=== PATIENT | female | born 1960 | race Caucasian/White ===

== ENCOUNTER 2020-08-27 13:12 | Outpatient (REF) | payer MEDICAID, SELFPAY | END 2020-08-27 13:13 | disposition home or self-care (01) | LOC: HO.LAB 13:12 | PROVIDERS: Visit Provider Internal Medicine | DX: Z20.822 Contact with and (suspected) exposure to COVID-19 (principal) | CPT/HCPCS: 36415; C9803; U0003; U0005 ==

== ENCOUNTER 2020-12-21 14:48 | Outpatient (REF) | payer MEDICAID, SELFPAY ==
--- NOTE | ~2020-12-21 | MM_ITS ---
EXAMINATION: MM SCREENING DIGITAL BREAST TOMOSYNTHESIS, BILATERAL CLINICAL INFORMATION: Screening. Asymptomatic. The lifetime risk of breast cancer based on the Tyrer-Cuzick Model is 7%. COMPARISON: Mammography: 10/26/2018, 09/30/2017, 09/05/2016 TECHNIQUE: Digital breast tomosynthesis is performed in both the craniocaudal and mediolateral oblique views along with computer-aided detection (CAD). Synthesized 2D images are generated from the tomosynthesis. FINDINGS: There are scattered areas of fibroglandular density (ACR BI-RADS breast composition Category b). Fibronodular parenchymal pattern is similar to prior exams. There is no interval mass or architectural abnormality. No developing density or abnormal calcifications. The axilla and skin contours are unremarkable. No significant changes from prior studies. MM/MM tomosynthesis screening BI IMPRESSION: No mammographic evidence of malignancy. ASSESSMENT: BI-RADS 2: Benign RECOMMENDATION: Routine annual mammography screening. This patient's information was entered into a reminder system with a target due date for their next mammogram.
== END 2020-12-21 14:49 | disposition home or self-care (01) ==
LOC: HO.MAMMO 14:48
PROVIDERS: PCP Registered Nurse; Visit Provider Registered Nurse
DX: Z12.31 Encounter for screening mammogram for malignant neoplasm of breast (principal)
CPT/HCPCS: 77063; 77067

== ENCOUNTER 2021-03-03 10:11 | Emergency (ER) | payer MEDICAID, SELFPAY ==
[2021-03-03 10:21] VITALS: BP 142/91; PULSE 85; RESP 17; TEMP 36.6; O2SAT 96; BMI 27.4
[2021-03-03 10:29] VITALS: BP 131/74; PULSE 80; RESP 16; TEMP 36.6; O2SAT 97
--- NOTE | 2021-03-03 11:00 | ED.GENADULT ---
HPI - General Adult General Chief complaint: General Medical Stated complaint: neck and back pain Time Seen by Provider: 03/03/21 10:40 Source: patient Mode of arrival: ambulatory History of Present Illness HPI narrative: 60-year-old female with a past medical history hyperlipidemia, HTN presenting to the ED complaining of right-sided neck pain x3 days s/p moving treadmill. Denies direct injury/trauma or fall. Denies numbness, tingling, weakness, urinary incontinence/retention, headache Reports using Braden-Beltran without relief Onset (ago): day(s) Related Data Previous Rx's Medication Instructions Recorded acetaminophen 500 mg tablet 500 mg PO Q6H PRN #20 tab 03/03/21 (Tylenol Extra Strength) cyclobenzaprine 5 mg tablet 5 mg PO Q8H PRN 5 Days #14 tab 03/03/21 lidocaine 5 % topical patch 1 patch TOPICAL DAILY PRN #30 ea 03/03/21 (Lidoderm) MDD remove after 12 hours naproxen 500 mg tablet 500 mg PO BID PRN 10 Days #20 tab 03/03/21 Allergies Allergy/AdvReac Type Severity Reaction Status Date / Time penicillin V Allergy Unknown Verified 09/26/19 00:00 Penicillins [PENICILLINS] Allergy Unknown RASH Unverified 04/05/20 16:04 Review of Systems Review of Systems: Constitutional: No Fever, No Chills, No Fatigue, No Malaise ENT/Mouth: No Hearing loss, No Ear Pain, No sore throat, No Rhinorrhea, No Swallowing Difficulty Cardiovascular: No Chest Pain, No SOB Respiratory: No Cough, No Dyspnea Gastrointestinal: No Nausea, No Vomiting, No Abdominal pain Genitourinary: No Urinary Incontinence/retention Musculoskeletal: + joint pain, No Myalgias, No Joint Swelling Skin: No Skin Lesions, No rash Neuro: No Weakness, No Numbness, No Paresthesias, No Headache Yes all other systems are reviewed and are negative [facility] Past Medical History Attestation statement: The following information was validated with the patient. Medical History (Updated 03/03/21 @ 11:01 by JOSH Butt) High cholesterol Hypothyroid Social History Social History Advance Directives: No Advance Directives Information Provided: No Patient : No Physical Exam Vital Signs: Vital Signs: Last Vital Signs Temp 97.9 F 03/03/21 10:29 Pulse 80 03/03/21 10:29 Resp 16 03/03/21 10:29 BP 131/74 03/03/21 10:29 Pulse Ox 97 03/03/21 10:29 Body Mass Index 27.4 Const: General: cooperative and healthy appearing Orientation/consciousness: patient oriented x3 Limitations: no limitations HENMT: Head: Yes normal to inspection Ears: hearing grossly normal bilaterally General nose exam: Normal external nose present Face and sinus: Yes normal facial exam Eyes: General: appearance normal, both eyes and all related structures EOM: EOMs intact bilaterally Neck: Other: No midline cervical spinous tenderness/step-off or deformity. + right-sided paraspinal MSK tenderness and + Right-sided trapezius muscle tenderness and visible muscle spasming Neck: Yes normal visual inspection Resp: Effort & Inspection: normal respiratory effort and no respiratory distress Cardio: Rate: regular rate Peripheral pulses: radial pulses present : General: Yes no CVA tenderness Back/Spine/Pelvis: Other: No midline thoracic/lumbar spinous tenderness or step-off Back: no CVA tenderness Skin: Rashes: no rashes Wounds: no wounds Neuro: General: patient oriented x3 Gait exam (Neuro): Normal gait present Extrem: General: Yes normal to inspection Medical Decision Making MDM Narrative Medical decision making narrative: 60-year-old female with a past medical history hyperlipidemia, HTN presenting to the ED complaining of right-sided neck pain x3 days s/p moving treadmill. On exam VS as, NAD, physical exam as above consistent with MSK pain/muscle spasming. no red flag symptoms or midline spinous tenderness throughout Discharge Plan Discharge Clinical Impression: Muscle spasms of neck Patient Disposition: Home, Self-Care Instructions: Acute Neck Pain (ED) Additional Instructions: Your pain is likely musculoskeletal Apply warm compresses, you likely need to massage Flexeril is a muscle relaxer, take at night as it makes you drowsy, do not drive, drink alcohol, or operate machinery while taking it Naproxen as an anti-inflammatory / pain medication, take with food Lidoderm patches are numbing patches, apply to painful area In addition take Tylenol at home If symptoms persist or worsen, pain becomes unbearable, you developed urinary retention or incontinence, or weakness return to the ED Prescriptions: New acetaminophen [Tylenol Extra Strength] 500 mg tablet 500 mg PO Q6H PRN (Reason: pain or fever) Qty: 20 RF: 0 lidocaine [Lidoderm] 5 % adhesive patch,medicated 1 patch topical DAILY MDD remove after 12 hours PRN (Reason: pain) Qty: 30 RF: 0 naproxen 500 mg tablet 500 mg PO BID PRN (Reason: pain) 10 Days Qty: 20 RF: 0 cyclobenzaprine 5 mg tablet 5 mg PO Q8H PRN (Reason: pain (scale score 7-10)) 5 Days Qty: 14 RF: 0 Referrals: Caren Cordova, DERIK [Primary Care Provider] - 2 days
[2021-03-03] MEDS: Ketorolac Tromethamine 15 MG/ML VIAL 30 MG IM (11:01)
[2021-03-03] MEDS: Cyclobenzaprine HCl 10 MG TABLET PO (11:01)
[2021-03-03] MEDS: Lidocaine 4 % Patch ADH..PATCH 1 PATCH TRANSDERMA (11:01)
== END 2021-03-03 11:19 | disposition home or self-care (01) ==
PROVIDERS: Emergency Provider Emergency Medicine; PCP Registered Nurse
DX: M54.2 Cervicalgia (principal); M62.830 Muscle spasm of back; Z79.899 Other long term (current) drug therapy
CPT/HCPCS: 96372; 99284; J1885

== ENCOUNTER → 2021-03-18 13:49 | Outpatient (REF) | payer MEDICAID, SELFPAY ==
--- NOTE | 2021-03-18 14:00 | CA_ITS ---
Transthoracic Echocardiogram Patient (Last, First, Middle): Dorita Baker, Gender: Female Date of : 1960 Age: 60 Procedure Date: 03/18/2021 Procedure Type: Transthoracic Echocardiogram Location: OP Height: 157.48 cm Weight: 68.04 kg BSA: 1.69 m2 Heart Rate: bpm BP: 118 / 60 mmHg Teacher Dancing: Referring MD: Savage Patel NP Tool And Die Maker Apprentice: Adair Guzmán MD Symptoms: CARDIAC MURMUR, CHEST PAIN Study Quality: Fair ECG Rhythm: Sinus Conclusions: - 1. Normal LV systolic function with grade 1 diastolic dysfunction 2. Normal cardiac valvular Doppler 3. Normal RV systolic pressure 4. No pericardial effusion Findings Left Ventricle Normal left ventricular size, thickness, and systolic function. The visually estimated ejection fraction is between 55-60%. Regional wall motion abnormalities can not be excluded due to suboptimal endocardial definition. Spectral Doppler is indicative of an impaired relaxation filling pattern. E/E prime ratio is <8, consistent with normal filling pressures. Evidence suggests grade I (mild) diastolic dysfunction. Right Ventricle Normal right ventricular cavity size and systolic function. Atria The left atrium is normal in size. There is lipomatous hypertrophy of the interatrial septum. There is no evidence of interatrial shunt. The right atrium is normal in size. Aortic Valve Normal aortic valve structure and function. There is no aortic valve stenosis. There is no aortic valve regurgitation. Mitral Valve Normal mitral valve structure and function. There is trace mitral valve regurgitation. There is no mitral valve stenosis. Pulmonic Valve The pulmonic valve was not well visualized. Tricuspid Valve Likely normal tricuspid valve structure and function. There is no tricuspid valve regurgitation. The right ventricular systolic pressure is 17 mmHg. There is no evidence of pulmonary hypertension. Great Vessels All visible segments of the aorta are normal in size. The pulmonary artery was not well visualized. Venous The inferior vena cava is normal in size and collapses greater than 50% with inspiration. Pericardium/Pleural There is no evidence of pericardial effusion. Prior Study Comparison No significant change compared to prior study dated: 05/04/2014. Measurements 2D Linear Measurements IVSd: 0.97 0.6-0.9/0.6-1.0 cm LVIDd: 4.47 3.9-5.3/4.2-5.9 cm LVIDd Index: 2.64 2.4-3.2/2.2-3.1 cm/m2 LVIDs: 2.83 2.0-3.6 cm LVPWd: 0.91 0.7-1.1 cm Ao Root: 2.90 2.1-3.5 cm LA Diam: 3.20 2.7-3.8/3.0-4.0 cm LAIDs Index: 1.89 1.5-2.3 cm/m2 LV Mass: 173.15 67-162/88-224 g LV Mass Index: 102.46 43-95/49-115 g/m2 LVOT Diam: 2.00 3.0+(-)1.3 cm 2D Systolic Function EF 4C: 52.70 >55% EF 2C: 54.60 >55% Mitral Valve MV Pk E: 0.58 MV PK A: 0.87 MV Decel Time: 211.00 E/A: 0.70 E'Lateral: 11.70 E'Medial: 10.10 E/E' Med: 5.80 E/E' Lat: 5.00 PHT: 62.00 MVA PHT: 3.55 Decel [place]y: 2.76 Aortic Valve AoV Pk Tai: 1.70 AoV Mn Tai: 1.04 AoV VTI: 0.39 AoV Pk Grad: 12.00 Aov Mn Grad: 5.00 ARLETH Cont.VTI: 1.83 LVOT LVOT Pk Tai: 1.07 LVOT Mn Tai: 0.70 LVOT VTI: 0.23 LVOT Pk Grad: 5.00 LVOT Mn Grad: 2.00 LVOT Diam: 2.00 LVOT Area: 3.14 Diastolic Function MV Pk E: 0.58 MV Pk A: 0.87 E/A: 0.70 E'Medial: 10.10 E/E' Med: 5.80 E' Laterial: 11.70 E/E' Lat: 5.00 Tricuspid Valve TR Pk Tai: 1.86 TR Pk Grad: 14.00 RA Press: 3.00 RVSP: 17.00 Great Vessels Aorta Ao Root-2D: 2.90 2.0-3.7 cm Ao Asc: 2.90 2.1-3.4 cm Pulmonary Valve PV Pk Tai: 1.22 Peak PV Grad: 6.00 Updated in Other Vendor System with Status of Final Adair Guzmán MD electronically signed on 03/19/2021 9:09:14 AM with status of Final
== END ==
LOC: HO.CARD 13:49
PROVIDERS: Visit Provider Emergency Medicine
DX: R07.9 Chest pain, unspecified (principal); R01.1 Cardiac murmur, unspecified
CPT/HCPCS: 93306

== ENCOUNTER 2021-10-16 12:32 | Outpatient (REF) | payer MEDICAID, SELFPAY ==
--- NOTE | ~2021-10-16 | XR_ITS ---
EXAMINATION: XR ABDOMEN KUB CLINICAL INDICATION: Left lower quadrant pain COMPARISON: None TECHNIQUE: AP x2 views of the abdomen. FINDINGS: There is moderate stool in the colon. No rectal fecal impaction. No gaseous dilatation of bowel or abnormal collections of gas. No visible urinary tract calculi. There are some scattered calcified phleboliths in the pelvis. The lung bases are clear. There is mild levocurvature lower lumbar spine. Spina bifida occulta at L5. XR/XR KUB IMPRESSION: No bowel obstruction or abnormal collections of gas. Lung bases clear.
== END 2021-10-16 12:33 | disposition home or self-care (01) ==
LOC: HO.XRAY 12:32
PROVIDERS: PCP Nurse Practitioner Family; Visit Provider Nurse Practitioner Family
DX: R10.32 Left lower quadrant pain (principal)
CPT/HCPCS: 74018

== ENCOUNTER 2021-11-18 11:28 | Outpatient (REF) | payer MEDICAID, SELFPAY | END 2021-11-18 11:29 | disposition home or self-care (01) | LOC: HO.US 11:28 | PROVIDERS: Visit Provider Nurse Practitioner Family | DX: Z13.89 Encounter for screening for other disorder (principal) ==

== ENCOUNTER 2021-12-23 11:11 | Outpatient (REF) | payer MEDICAID, SELFPAY ==
--- NOTE | ~2021-12-23 | MM_ITS ---
EXAMINATION: MM SCREENING DIGITAL BREAST TOMOSYNTHESIS, BILATERAL CLINICAL INFORMATION: Screening. Asymptomatic. The lifetime risk of breast cancer based on the Tyrer-Cuzick Model is 5.8%. COMPARISON: Mammography: December 21, 2020 and studies dating back to June 02, 2013 TECHNIQUE: Digital breast tomosynthesis is performed in both the craniocaudal and mediolateral oblique views along with computer-aided detection (CAD). Synthesized 2D images are generated from the tomosynthesis. FINDINGS: The breasts are heterogeneously dense, which may obscure small masses (ACR BI-RADS breast composition Category c). There are no significant masses, abnormal calcifications, or other abnormalities. MM/MM tomosynthesis screening BI IMPRESSION: There are no significant changes from prior study. ASSESSMENT: BI-RADS 1: Negative RECOMMENDATION: Routine annual mammography screening. This patient's information was entered into a reminder system with a target due date for their next mammogram.
== END 2021-12-23 11:12 | disposition home or self-care (01) ==
LOC: HO.MAMMO 11:11
PROVIDERS: Visit Provider Nurse Practitioner Family
DX: Z12.31 Encounter for screening mammogram for malignant neoplasm of breast (principal)
CPT/HCPCS: 77063; 77067

== ENCOUNTER 2022-01-23 10:47 | Outpatient (REF) | payer MEDICAID, SELFPAY ==
--- NOTE | ~2022-01-23 | US_ITS ---
EXAMINATION: US PELVIS CLINICAL INFORMATION: Left-sided tenderness COMPARISON: None TECHNIQUE: Ultrasound of the pelvis is performed using both transabdominal and transvaginal transducers along with Doppler. Transvaginal imaging is performed due to inadequate visualization transabdominally. FINDINGS: The uterus is retroverted and retroflexed and measures 8 x 3.4 x 4.6 cm in dimension. No focal uterine lesion is seen. Endometrial thickness is normal measuring 0.5 cm. The right ovary measures 2.5 x 1.7 x 1.4 cm. Left ovary measures 1.8 x 1.3 x 1.4 cm. There are numerous small echogenic foci in both ovaries questionable for calcifications. No mass or cyst is seen. There is no fluid in the pelvis. US/US pelvic and transvaginal IMPRESSION: No acute findings. Question small calcifications in the ovaries.
== END 2022-01-23 10:48 | disposition home or self-care (01) ==
LOC: HO.US 10:47
PROVIDERS: Visit Provider Nurse Practitioner Family
DX: R10.32 Left lower quadrant pain (principal)
CPT/HCPCS: 76830; 76856

== ENCOUNTER 2022-04-10 13:05 | Outpatient (REF) | payer MEDICAID, SELFPAY ==
[2022-04-11 02:32] LABS: CT PCR NOT DETECTED (Not Detect.); NG PCR NOT DETECTED (Not Detect.)
== END 2022-04-10 13:06 | disposition home or self-care (01) ==
LOC: HO.LNP 13:05
PROVIDERS: Visit Provider Obstetrics & Gynecology
DX: Z11.3 Encounter for screening for infections with a predominantly sexual mode of transmission (principal); R10.2 Pelvic and perineal pain
CPT/HCPCS: 87491; 87591; 99202

== ENCOUNTER 2022-06-26 08:09 | Outpatient (REF) | payer MEDICAID, SELFPAY ==
[2022-06-26 08:44] LABS: COVID-19 Test Positive (Negative); IDNOW Serial# BCCEAD1C
== END 2022-06-26 08:10 | disposition home or self-care (01) ==
LOC: HO.LAB 08:09
PROVIDERS: Visit Provider Internal Medicine
DX: Z20.822 Contact with and (suspected) exposure to COVID-19 (principal)
CPT/HCPCS: 87635; C9803

== ENCOUNTER 2022-12-24 10:48 | Outpatient (REF) | payer MEDICAID, SELFPAY ==
[2022-12-30 09:44] LABS: HPV mRNA E6/E7 rflx Not Detected (Not Detected)
== END 2022-12-24 10:49 | disposition home or self-care (01) ==
LOC: HO.LNP 10:48
PROVIDERS: PCP Registered Nurse; Visit Provider Obstetrics & Gynecology
DX: Z01.419 Encounter for gynecological examination (general) (routine) without abnormal findings (principal)
CPT/HCPCS: 87624; 88142

== ENCOUNTER 2023-01-26 13:36 | Outpatient (REF) | payer MEDICAID, SELFPAY ==
--- NOTE | ~2023-01-26 | MM_ITS ---
EXAMINATION: MM SCREENING DIGITAL BREAST TOMOSYNTHESIS, BILATERAL CLINICAL INFORMATION: Screening. Asymptomatic. The lifetime risk of breast cancer based on the Tyrer-Cuzick Model is 5.9%. COMPARISON: Mammography: This study is compared with prior exams dating back to 2017. TECHNIQUE: Digital breast tomosynthesis is performed in both the craniocaudal and mediolateral oblique views along with computer-aided detection (CAD). Synthesized 2D images are generated from the tomosynthesis. FINDINGS: There are scattered areas of fibroglandular density (ACR BI-RADS breast composition Category b). There are no significant masses, abnormal calcifications, or other abnormalities. MM/MM tomosynthesis screening BI IMPRESSION: No mammographic evidence of malignancy. ASSESSMENT: BI-RADS BI-RADS 1 - Negative RECOMMENDATION: Routine annual mammography screening. 1 year F/U This examination should not preclude the clinical evaluation of a suspicious palpable abnormality. This patient's information was entered into a reminder system with a target due date for their next mammogram.
== END 2023-01-26 13:37 | disposition home or self-care (01) ==
LOC: HO.MAMMO 13:36
PROVIDERS: PCP Registered Nurse; Visit Provider Obstetrics & Gynecology
DX: Z12.31 Encounter for screening mammogram for malignant neoplasm of breast (principal)
CPT/HCPCS: 77063; 77067

== ENCOUNTER → 2023-01-26 14:15 | Outpatient (BNV) | payer MEDICAID, SELFPAY | PROVIDERS: PCP Registered Nurse; Visit Provider Radiology Diagnostic Radiology | DX: Z12.31 Encounter for screening mammogram for malignant neoplasm of breast (principal) | CPT/HCPCS: 77063; 77067 ==

== ENCOUNTER 2023-02-25 10:52 | Outpatient (REF) | payer MEDICAID, SELFPAY ==
[2023-02-25 11:25] LABS: MANUAL DIFF FLAG NO
[2023-02-25 11:47] LABS: Basophils Absolute Auto 0.1 X10*3/uL (0.0-0.2); Basophils Percent Auto 0.9 % (0-2); Eosinophils Absolute Auto 0.1 X10*3/uL (0.0-0.4); Eosinophils Percent Auto 1.4 % (0-4); Hematocrit 38.8 % (37.0-47.0); Imm Gran Abs Auto 0.02 X10*3/uL (0.00-0.03); Imm Gran Pct Auto 0.2 % (0.0-0.4); Lymphocytes Absolute Auto 2.5 X10*3/uL (1.2-4.9); Lymphocytes Percent Auto 28.7 % (20-40); Mean Corpuscular HGB Conc 33.5 g/dl (31.0-35.0); Mean Corpuscular Hemoglobin 32.3 pg (27.0-33.0); Mean Corpuscular Volume 96.3 fL (80.0-98.0); Mean Platelet Volume 9.9 fL (9.4-12.3); Monocytes Absolute Auto 0.4 X10*3/uL (0.1-1.2); Monocytes Percent Auto 4.3 % (2-11); Neutrophils Absolute Auto 5.6 x10*3/uL (2.0-8.3); Neutrophils Percent Auto 64.5 % (45-73); Platelet Count 265 X10*3/uL (160-400); Red Blood Count 4.03 X10*6/uL (4.20-5.50); Red Cell Distribution Width 12.6 % (11.0-16.0); White Blood Count 8.6 X10*3/uL (4.8-10.8)
[2023-02-25 12:39] LABS: TSH reflex Free T4 0.22 uIU/mL (0.32-4.0)
[2023-02-25 13:09] LABS: Free T4 (Free Thyroxine) 1.23 ng/dL (0.71-1.85)
== END 2023-02-25 10:53 | disposition home or self-care (01) ==
LOC: HO.HHCL 10:52
PROVIDERS: Visit Provider Registered Nurse
DX: Z00.00 Encounter for general adult medical examination without abnormal findings (principal); E03.8 Other specified hypothyroidism
CPT/HCPCS: 36415; 84439; 84443; 85025

== ENCOUNTER 2023-05-27 10:20 | Outpatient (REF) | payer MEDICAID, SELFPAY ==
[2023-05-27 12:16] LABS: TSH reflex Free T4 1.85 uIU/mL (0.32-4.0)
== END 2023-05-27 10:21 | disposition home or self-care (01) ==
LOC: HO.HHCL 10:20
PROVIDERS: Visit Provider Registered Nurse
DX: E03.8 Other specified hypothyroidism (principal)
CPT/HCPCS: 36415; 84443

== ENCOUNTER 2023-09-02 09:56 | Outpatient (REF) | payer MEDICAID, SELFPAY ==
--- NOTE | ~2023-09-02 | XR_ITS ---
EXAMINATION: XR KNEE, BILATERAL CLINICAL INFORMATION: Locking knee pain times several months COMPARISON: Left knee radiograph from 08/19/2019 TECHNIQUE: 3 views of each knee FINDINGS: RIGHT: No acute visible fracture or dislocation. Mild narrowing medial femorotibial compartment. Joint space alignment are otherwise maintained. No large knee joint effusion. Soft tissues are unremarkable. LEFT: No acute visible fracture or dislocation. Mild narrowing medial femorotibial compartment. Joint space alignment are otherwise maintained. No large knee joint effusion. Soft tissues are unremarkable. XR/XR knee RT 3V IMPRESSION: 1. No acute visible fracture or dislocation. 2. Mild bilateral medial femorotibial compartment narrowing.
--- NOTE | ~2023-09-02 | XR_ITS ---
EXAMINATION: XR KNEE, BILATERAL CLINICAL INFORMATION: Locking knee pain times several months COMPARISON: Left knee radiograph from 08/19/2019 TECHNIQUE: 3 views of each knee FINDINGS: RIGHT: No acute visible fracture or dislocation. Mild narrowing medial femorotibial compartment. Joint space alignment are otherwise maintained. No large knee joint effusion. Soft tissues are unremarkable. LEFT: No acute visible fracture or dislocation. Mild narrowing medial femorotibial compartment. Joint space alignment are otherwise maintained. No large knee joint effusion. Soft tissues are unremarkable. XR/XR knee LT 3V IMPRESSION: 1. No acute visible fracture or dislocation. 2. Mild bilateral medial femorotibial compartment narrowing.
== END 2023-09-02 09:57 | disposition home or self-care (01) ==
LOC: HO.HHCX 09:56
PROVIDERS: Visit Provider Registered Nurse
DX: M25.561 Pain in right knee (principal); M25.562 Pain in left knee; G89.29 Other chronic pain
CPT/HCPCS: 73562

== ENCOUNTER 2023-09-30 13:39 | Outpatient (REF) | payer MEDICAID, SELFPAY ==
--- NOTE | ~2023-09-30 | US_ITS ---
EXAMINATION: US PELVIS CLINICAL INFORMATION: Ovarian calcifications. COMPARISON: Pelvic ultrasound 01/23/2022. TECHNIQUE: Ultrasound of the pelvis is performed using both transabdominal and transvaginal transducers along with Doppler. Transvaginal imaging is performed due to inadequate visualization transabdominally. FINDINGS: Uterus: The uterus measures 7.4 x 3.3 x 5.2 cm. The uterus is retroverted and retroflexed. The endometrial stripe is 5 mm. Adnexa: Small calcifications are seen in the ovaries but no discrete mass. The right ovary measures 1.9 x 1.5 x 1.1 cm, volume 1.6 mL. The left ovary measures 1.8 x 1.2 x 1.3 cm, volume 1.5 mL. US/US pelvic and transvaginal IMPRESSION: Small calcifications are seen in both ovaries without a discrete ovarian mass. The appearance is similar to the prior study from 01/23/2022.
== END 2023-09-30 13:40 | disposition home or self-care (01) ==
LOC: HO.US 13:39
PROVIDERS: PCP Registered Nurse; Visit Provider Registered Nurse
DX: R93.89 Abnormal findings on diagnostic imaging of other specified body structures (principal); N83.8 Other noninflammatory disorders of ovary, fallopian tube and broad ligament
CPT/HCPCS: 76830; 76856

== ENCOUNTER 2023-12-11 10:00 | Outpatient (RCR) | payer MEDICAID, SELFPAY ==
--- NOTE | 2023-11-23 17:56 | MHC.PT.EP ---
[facility] [place] Office [place] Office [place] Office [address] Shabb[address] [place] [address] [phone] F: [phone] F: [phone] F: [phone] F: [phone] Physical Therapy Plan of Care Date of Evaluation: 11/23/23 Date of Surgery: N/A Diagnosis: B/L knee pain (RL) Assessment: pt is a 63 y/o female presenting to physical therapy w/ referring diagnosis of bilateral knee pain. Her signs and symptoms are more consistent w/ poor patellar mobility most likely causing poor tracking w/ squatting. Impairments include pain, decreased range of motion, decreased strength, impaired functional mobility, impaired postural awareness, and altered ambulation mechanics. pt is a good candidate for skilled PT due to age, potential remediation of impairments, typical disease/condition progression and prognosis, comorbidities, and motivation. pt would benefit from skilled PT intervention to provide a tailored strengthening and stretching exercise program, functional training, gait training, postural re-training, neuromuscular re-education, modalities as needed for pain, equipment safety demonstration. Frequency and Duration: The patient will be seen 2x/wk for 4 wks Short Term Goals: pt will be I w/ HEP to promote self-management of condition. pt will demo proper squat mechanics to promote return to picking up objects from floor. Fpc Goals: pt will ascend/descend four flights of stairs w/ <2/10 B knee pain to promote ease in access to living spaces. pt will report a statistically significant improvement in self-reported outcome measure, LEFI, to promote return to PLOF. Treatment Plan: Modalities to reduce pain, spasms and effusion. Manual therapy to restore motion and function. Therapeutic exercise to improve strength and flexibility. Neuromuscular re-education for posture and balance. Therapeutic activities to return to functional activities of daily living. Electronically signed by: Devora Alfaro PT, DPT Please sign and return to therapist. Thank you for your referral.
--- NOTE | 2023-12-25 09:30 | MHC.PT.DC ---
[facility] [place] [facility] [place] Office [place] Office [address] [place] [phone] F: [phone] F: [phone] F: [phone] F: [phone] Physical Therapy Discharge Report Diagnosis: B/L knee pain (RL) Date of Surgery: N/A Date of Evaluation: 11/23/23 Date of Discharge: 12/25/23 Treatments to Date: 3 Cancellations to Date: 4 No Shows to Date: 2 Discharge Status: Visit Non-compliance Discharge Summary: The patient has only attended two of eight scheduled visits. She either cancelled or no showed the rest. She was presenting with signs and symptoms consistent with arthritis and potential meniscal involvement. She has poor patellar mobility and was shown how to improve this. She has not been seen in this office in two weeks. Her current status is unknown. She is discharged for non-compliance. Electronically signed by: Devora Alfaro PT, DPT Please sign and return to therapist. Thank you for your referral.
== END 2023-12-25 09:30 | disposition home or self-care (01) ==
LOC: HO.PT 10:00
PROVIDERS: PCP Registered Nurse; Visit Provider Registered Nurse
DX: M25.561 Pain in right knee (principal); M25.562 Pain in left knee; G89.29 Other chronic pain
CPT/HCPCS: 97110; 97161; 97530

== ENCOUNTER 2023-12-28 08:57 | Outpatient (AMB) | payer MEDICAID, SELFPAY ==
--- NOTE | 2023-12-28 09:49 | A.OFFVIS_ITS ---
Vital Signs 12/28/23 09:55 Height 5 ft 2 in Weight 140 lb BMI 25.6 BP 120/70 Intake Visit Reasons: PATROL MOTHER annual exam Dealer Development Manager Required: Yes Dealer Development Manager Language: [place]fort [place] Supervisor Name: Willa KUNZ Information Interpreted: non-clinical & clinical Circular Knitter Helper: Circular Knitter Helper Present (Willa KUNZ) Accompanied by: Daughter Allergies Penicillins [PENICILLINS] Allergy (Unknown, Verified 12/28/23 09:56) RASH Post menopausal: Yes HPI Comments Details: Presenting for annual exam. No complaints. Last Pap/HPV was negative in 01/09 Last Mammogram was BI-RADS 1 in 02/08 No previous screening Colonoscopy PFSH Medical History Hypothyroid High cholesterol Surgical History H/O tubal ligation Family History Mother Asthma Social History Household Members Other:: daughter,grandaughter Alcohol intake: never Patient Tobacco Use Status: Current everyday Tobacco user Tobacco use type: Cigarette Cigarettes Per Day: 2 Years Smoked: 27 Current occupational status: employed Current occupation: [employer] Sexual orientation: Straight/Heterosexual Gender identity: Female Female Reproductive History Menstrual Age of Menarche: 14 Menopause type: natural Total pregnancies: 4 Full term: 4 Number of Living Children: 4 Date of last pap smear: 12/25/22 Date of Mammogram: 01/26/23 Review of Systems Const All systems reviewed & are unremarkable except as noted in HPI and below Card Reports as per HPI Resp Reports as per HPI GI Reports as per HPI and Reports no additional complaints Reports as per HPI Physical Exam Vital Signs: Last Vital Signs BP 120/70 12/28/23 09:55 BMI result Body Mass Index 25.6 Const General: cooperative, healthy appearing and comfortable Chest Chest palpation & inspection: normal inspection of the chest and normal palpation of entire chest wall Breast/axilla inspection: normal inspection of the breasts and normal inspection of the axillae Breast/axilla palpation: normal palpation of the breasts, normal palpation of the axillae and no axillary lymphadenopathy Resp Effort & Inspection: normal respiratory effort Auscultation: clear to auscultation bilaterally Percussion: percussion normal Cardio Palpation: normal PMI Rate: regular rate Rhythm: regular rhythm Heart sounds: no murmurs and no rubs Peripheral pulses: Peripheral pulses 2+ throughout GI Inspection: Yes normal to inspection Palpation (GI): Soft to palpation, nontender, no guarding, not rigid and No hepatosplenomegaly present Percussion: Yes normal to percussion Auscultation: normal bowel sounds Rectal Exam - Female: deferred General: Yes bladder normal to palpation External Female Exam: No lesion Speculum Exam - Vagina: normal appearance of the vagina, normal palpation, normal vaginal discharge and not erythematous Speculum Exam - Cervix: normal appearance of the cervix and normal palpation Bimanual exam- vagina & uterus: normal bimanual exam, normal palpation, uterine size normal, bladder normal to palpation, consistency normal and normal palpation Bimanual Exam- Adnexa, other: normal adnexae, no masses and no tenderness Assessment & Plan Assessment & Plan (1) Well woman exam: Code(s): Z01.419 - Encounter for gynecological examination (general) (routine) without abnormal findings Category: Medical Plan: Co testing not indicated this year. Counseled the patient about the recommended dietary allowance of 1200 mg of Calcium & 600 IU of vitamin D. Screening Mammogram ordered. The patient was referred to GI for screening colonoscopy . The patient was instructed to perform monthly self-breast exams and schedule annual exam in a year. All questions answered and the patient verbalized understanding. Orders: Orders MM tomosynthesis screening BI Today Z12.31 - Encounter for screening mammogram for malignant neoplasm of breast Referrals Gastroenterology Referral Z12.11 - Encounter for screening for malignant neoplasm of colon Coding Level of Care Code Est Pt Prev Care 40-64y(01194) Diagnoses Well woman exam Z01.419
[2023-12-28 09:55] VITALS: BP 120/70; BMI 25.6
== END 2023-12-28 10:35 | disposition home or self-care (01) ==
LOC: HO.HWS 08:57
PROVIDERS: PCP Registered Nurse; Referring Provider Registered Nurse; Visit Provider Obstetrics & Gynecology
DX: Z01.419 Encounter for gynecological examination (general) (routine) without abnormal findings (principal)
CPT/HCPCS: 99396

== ENCOUNTER 2023-12-28 08:57 | Outpatient (REF) | payer MEDICAID, SELFPAY | END 2023-12-28 08:58 | disposition home or self-care (01) | LOC: HO.MAMMO 08:57 | PROVIDERS: PCP Registered Nurse; Visit Provider Obstetrics & Gynecology | DX: Z01.419 Encounter for gynecological examination (general) (routine) without abnormal findings (principal) | CPT/HCPCS: 99396 ==

== ENCOUNTER 2024-01-14 09:38 | Outpatient (REF) | payer MEDICAID, SELFPAY ==
--- NOTE | ~2024-01-14 | MM_ITS ---
EXAMINATION: BONE DENSITOMETRY CLINICAL INDICATION: Postmenopausal. COMPARISON: This is the patient's baseline examination. TECHNIQUE: Using a [employer]Jane DXA System (software version: 13.1) manufactured by [employer], dual-energy x-ray absorptiometry was performed of the lumbar spine and left hip. The images are of good technical quality. Summary results are attached. FINDINGS: LEFT FEMUR, NECK: BMD 1.053 g/cm2, Z-score 1.4, T-score 0.1, normal. LEFT FEMUR, TOTAL: BMD 1.149 g/cm2, Z-score 2.1, T-score 1.1, normal. AP SPINE L1-L4: BMD 1.241 g/cm2, Z-score 1.8, T-score 0.5, normal. IDENTIFIED RISK FACTORS: Menopause. HISTORY OF FRACTURE: None listed. MEDICATIONS: None listed. MM/XR DEXA axial skeleton IMPRESSION: 1. DIAGNOSIS: Normal bone density based on the lowest T-score value of 0.1 in the femoral neck applying World Health Organization criteria. 2. 10-YEAR FRACTURE RISK PREDICTION, FRAX: According to the guidelines, FRAX calculation should only be performed on patients in the osteopenia bone density category. Therefore, FRAX was not performed on this patient. 3. Treatment Recommendations: NOF guidelines recommend consideration for treatment in postmenopausal women and men age 50 and older presenting with the following: -A hip or vertebral (clinical or morphometric) fracture. -T-score less than or equal to -2.5 at the femoral neck or spine after appropriate evaluation to exclude secondary causes. -Low bone mass at the hip or spine and a 10-year fracture probability by FRAX of greater than or equal to 3% for hip fracture or greater than or equal to 20% for major osteoporotic fracture based on the [place] adapted WHO algorithm. 4. Other Recommendations: All treatment decisions require clinical judgment and consideration of individual patient factors, including patient preferences, comorbidities, previous drug use, risk factors not captured in the FRAX model (e.g. frailty, falls, vitamin D deficiency, increased bone turnover, interval significant decline in bone density) and possible under or overestimation of fracture risk by FRAX. FUTURE SCAN RECOMMENDATION: People with diagnosed cases of osteoporosis or at high risk for fracture should have regular bone mineral density tests. For patients eligible for Medicare, routine testing is allowed once every 2 years. The testing frequency can be increased to one year for patients who have rapidly progressing disease, those who are receiving or discontinuing medical therapy to restore bone mass, or have additional risk factors.
== END 2024-01-14 09:39 | disposition home or self-care (01) ==
LOC: HO.MAMMO 09:38
PROVIDERS: PCP Registered Nurse; Visit Provider Registered Nurse
DX: Z13.820 Encounter for screening for osteoporosis (principal); Z78.0 Asymptomatic menopausal state
CPT/HCPCS: 77080

== ENCOUNTER 2024-02-12 09:48 | Outpatient (REF) | payer MEDICAID, SELFPAY | END 2024-02-12 09:49 | disposition home or self-care (01) | LOC: HO.MAMMO 09:48 | PROVIDERS: PCP Registered Nurse; Visit Provider Registered Nurse | DX: Z12.31 Encounter for screening mammogram for malignant neoplasm of breast (principal) | CPT/HCPCS: 77063; 77067 ==

== ENCOUNTER → 2024-02-12 10:00 | Outpatient (BNV) | payer MEDICAID, SELFPAY | PROVIDERS: PCP Registered Nurse; Visit Provider Radiology Diagnostic Radiology | DX: Z12.31 Encounter for screening mammogram for malignant neoplasm of breast (principal) | CPT/HCPCS: 77063; 77067 ==

== ENCOUNTER 2024-06-03 13:30 | Outpatient (REF) | payer MEDICAID, SELFPAY ==
--- NOTE | ~2024-06-03 | US_ITS ---
EXAMINATION: US TRIPLEX LOWER EXTREMITY, LEFT CLINICAL INFORMATION: Left lower extremity pain. Evaluate for deep vein thrombosis. COMPARISON: None available. TECHNIQUE: Color-flow triplex imaging with spectral analysis and compression Doppler were performed on the left lower extremity. FINDINGS: Respiratory variation, normal compression and augmented flow are noted throughout the left lower extremity. The visualized common femoral vein, superficial femoral vein, profunda femoral vein, popliteal vein and midcalf peroneal and posterior tibial venous segments show no evidence of deep venous thrombosis. There is no Saxena's cyst. US/US venous duplex LE LT IMPRESSION: No evidence of deep venous thrombosis involving the left lower extremity. Electronically signed by: Albert Jackson MD 06/03/2024 03:53 PM EST
== END 2024-06-03 13:31 | disposition home or self-care (01) ==
LOC: HO.US 13:30
PROVIDERS: PCP Registered Nurse; Visit Provider Internal Medicine
DX: M25.562 Pain in left knee (principal)
CPT/HCPCS: 93971

== ENCOUNTER 2024-07-01 09:01 | Outpatient (REF) | payer MEDICAID, SELFPAY | END 2024-07-01 09:02 | disposition home or self-care (01) | LOC: HO.HHCX 09:01 | PROVIDERS: PCP Registered Nurse; Visit Provider Nurse Practitioner Family | DX: R63.4 Abnormal weight loss (principal) | CPT/HCPCS: 71046 ==

== ENCOUNTER → 2024-07-01 09:06 | Outpatient (BNV) | payer MEDICAID, SELFPAY | PROVIDERS: PCP Registered Nurse; Visit Provider Radiology Diagnostic Radiology | DX: R63.4 Abnormal weight loss (principal); Z87.891 Personal history of nicotine dependence | CPT/HCPCS: 71046 ==

== ENCOUNTER 2024-08-10 12:15 | Outpatient (REF) | payer MEDICAID, SELFPAY ==
[2024-08-10 13:28] LABS: MANUAL DIFF FLAG NO
[2024-08-10 13:30] LABS: Basophils Absolute Auto 0.1 X10*3/uL (0.0-0.2); Basophils Percent Auto 0.8 % (0-2); Eosinophils Absolute Auto 0.1 X10*3/uL (0.0-0.4); Eosinophils Percent Auto 0.7 % (0-4); Hematocrit 40.6 % (37.0-47.0); Hemoglobin 13.7 g/dl (12.0-16.0); Imm Gran Abs Auto 0.03 X10*3/uL (0.00-0.03); Imm Gran Pct Auto 0.2 % (0.0-0.4); Lymphocytes Absolute Auto 2.2 X10*3/uL (1.2-4.9); Lymphocytes Percent Auto 17.7 % (20-40); Mean Corpuscular HGB Conc 33.7 g/dl (31.0-35.0); Mean Corpuscular Hemoglobin 32.6 pg (27.0-33.0); Mean Corpuscular Volume 96.7 fL (80.0-98.0); Mean Platelet Volume 10.1 fL (9.4-12.3); Monocytes Absolute Auto 0.6 X10*3/uL (0.1-1.2); Monocytes Percent Auto 4.5 % (2-11); Neutrophils Absolute Auto 9.3 x10*3/uL (2.0-8.3); Neutrophils Percent Auto 76.1 % (45-73); Platelet Count 270 X10*3/uL (160-400); Red Cell Distribution Width 13.4 % (11.0-16.0); White Blood Count 12.2 X10*3/uL (4.8-10.8)
[2024-08-10 13:56] LABS: Alanine Aminotransferase 30 U/L (0-31); Albumin Level 4.4 g/dL (3.5-5.0); Alkaline Phosphatase 82 U/L (39-117); Anion Gap 9 (12-20); Aspartate Amino Transferase 25 U/L (5-31); Bilirubin Total 0.6 mg/dL (0.0-1.0); Blood Urea Nitrogen 17 mg/dL (9-16); Calcium 10.2 mg/dL (8.4-10.2); Carbon Dioxide 27 mmol/L (22-29); Chloride 108 mmol/L (96-108); Cholesterol 163 mg/dL (<200); Estimated Glomerular Filt Rate > 60; Glucose Random 98 mg/dL (60-115); HDL Cholesterol 66 mg/dL (>40); LDL Cholesterol Calculated 84 mg/dL (<100); Potassium 4.6 mmol/L (3.3-5.1); Sodium 139 mmol/L (135-145); Total Protein 7.9 g/dL (6.5-8.0); Triglycerides 66 mg/dL (<150)
[2024-08-10 13:58] LABS: Creatinine Urine 79.74 mg/dL; Microalbum/Creatinine Ratio Ur 8.7 ug/mg cr (<30)
[2024-08-10 14:02] LABS: Estimated Average Glucose 126 mg/dL; Hemoglobin A1C 145.4116 umol/L; Total Hemoglobin (HGBA1C) 3431.6908 umol/L
--- OUTSIDE RECORDS SUMMARY | 2024-08-10 14:11 | XMS_ITS | Encounter Summary ---
Author Organization [employer] Address [address] [place] [address] Care Team Providers Care Turbine Inspector Name Role Phone Trisha Steinberg [employer] Primary Care Provider [phone] Encounter Details Date Type Department Care Team (Latest Contact Info) Description 08/10/2024 Travel Social History Tobacco Use Types Packs/Day Years Used Date Smoking Tobacco: Every Day Cigarettes Smokeless Tobacco: Never Comments:Abstaining since te sting positive , affirmed this Alcohol Use Standard Drinks/Week Comments Never 0 (1 standard drink = 0.6 oz pur e alcohol) Depression Answer Date Recorded Patient Health Questionnaire-9 Score 0 08/10/2024 Patient Health Questionnaire-9 Score 0 08/10/2024 Last PHQ-9: Questionnaire Data Not on file 0 08/10/2024 Housing Stability Answer Date Recorded What is your housing situation today? I have bambi simon 12/30/[address] you li ve. Do you have problems with any of the following? None of the above 12/30/2023 Food Insecurity Answer Date Recorded Within the past 12 months, y ou worried that your food would run out before you got money to buy more: Never True 12/30/2023 Within the past 12 months,th e food you bought just didn't last and you didn't have enough money to get more: Never True 06/2024 Transportation Answer Date Recorded In the past 12 months, has l ack of transportation kept you from medical appts, meetings, work or from getting things needed for daily living? No 08/10/2024 Utilities Answer Date Recorded In the past 12 months, has t he electric, gas, oil or water company threatened to shut off services in your home? No 12/30/2023 Depression Answer Date Recorded Patient Health Questionnaire-2 Score 0 08/10/2024 Internet Access Answer Date Recorded Internet Access Q1 Yes 08/10/2024 Internet Access Q2 I do not want or need it 07/21 Comments Unknown Sex and Gender Information Value Date Recorded Sex Assigned at Female 05/19/2022 10:15 AM EDT Legal Sex Female 10:15 AM EDT Gender Identity Female 09/20/2022 2:48 PM EST Sexual Orientation Choose not to disclose 2021 10:15 AM EDT documented as of this encounter Plan of Treatment Not on file documented as of this encounter Visit Diagnoses Not on filedocumented in this encounter Additional Health Concerns Assessment Noted Time PHQ-9 Depression Total Score: 0 08/10/19 25 11:20 AM EST documented as of this encounter Care Teams Turbine Inspector Relationship Specialty Start Date End Date Trisha Steinberg FNP [address] [place] [address] PCP - General Family Medicine 03/17/22 documented as of this encounter
--- OUTSIDE RECORDS SUMMARY | 2024-08-10 14:11 | XMS_ITS | Clinical Summary ---
Author Organization [employer] Address [address] [place] [address] [address] [place] [address] Care Team Providers Care It Technician Name Role Phone Trisha Steinberg OCEAN LIFEGUARD Primary Care Provider [phone] Allergies Active Allergy Reactions Criticality Noted Date Comments Penicillins Rash Low 07/08/2010 Medications polyethylene glycol, PEG, 3350 (Glycolax) 17 GM/SCOOP powder take (17G) by oral route every day mixed with 8 oz. water, juice, soda, coffee or tea 022 Active acetaminophen (Tylenol) 500 MG tabletIndications :Acute non-recurrent sinusitis, unspecified location Take 2 tablets (1,000 mg) by mouth every 6 (six) hours if needed for moderate pain or fever for up to 25 doses. 50 tablet 023 Active fluticasone (Flonase Allergy Relief) 50 MCG/ACT nasal sprayIndications: Acute non-recurrent sinusitis, unspecified location Administer 1 spray into each nostril in the morning. Shake gently. Before first use, prime pump. After use, clean tip and replace cap. 16 g 12 023 Active albuterol (Ventolin HFA) 108 (90 Base) MCG/ACT inhaler Inhale 2 puff every 4-6 hours as needed for wheezing 18 g 11 024 Active cholecalciferol (Vitamin D-3) 25 MCG (1000 UT) capsule Take 1 capsule (25 mcg) by mouth Once daily. 90 capsule 3 024 2024 Active levothyroxine (Synthroid, Levoxyl) 75 MCG tabletIndications :Other specified hypothyroidism TAKE 1 TABLET(75 MCG) BY MOUTH BEFORE BREAKFAST 90 tablet 3 025 Active atorvastatin (Lipitor) 20 MG tabletIndications :Other hyperlipidemia TAKE 1 TABLET BY MOUTH AT BEDTIME FOR CHOLESTEROL 90 tablet 3 025 Active levothyroxine (Synthroid, Levoxyl) 75 MCG tabletIndications :Other specified hypothyroidism TAKE 1 TABLET(75 MCG) BY MOUTH BEFORE BREAKFAST 90 tablet 1 024 2024 Discontinued(R eorder (will not trigger notification to Pharmacy)) atorvastatin (Lipitor) 20 MG tabletIndications :Other hyperlipidemia TAKE 1 TABLET BY MOUTH AT BEDTIME FOR CHOLESTEROL 90 tablet 3 024 2024 Discontinued(R eorder (will not trigger notification to Pharmacy)) Active Problems Problem Noted Date Diagnosed Date Weight loss 06/24/2024 Assessment & Plan (06/25/2024 1:21 PM EST): Pt feels well, utd on routine cancer screenings Feels well denies constitutional symptoms, labs wnl Reassuring exam, chest x-ray ordered Pt has follow up scheduled with pcp Chronic pain of both knees 10/13/2023 Assessment & Plan (04/07/2024 2:07 PM EDT): Pain primarily elicited with bending movements and stairs XR completed 09/02/23 with the following impression: 1. No acute visible fracture or dislocation. 2. Mild bilateral medial femorotibial compartment narrowing Continue with [facility], PT1 referral placed 12/30/23 Continue with topical analgesics PRN Goal for housing on lower level floor or one with elevator to prevent worsening knee pain Assessment & Plan (12/30/2023 10:52 AM EDT): Pain primarily elicited with bending movements XR completed 09/02/23 with the following impression: 1. No acute visible fracture or dislocation. 2. Mild bilateral medial femorotibial compartment narrowing Continue with [facility] physical therapy, PT1 referral placed 12/30/23 Continue with topical analgesics PRN Assessment & Plan (10/13/2023 8:39 PM EDT): Pain primarily elicited with bending movements XR completed 09/02/23 with the following impression: 1. No acute visible fracture or dislocation. 2. Mild bilateral medial femorotibial compartment narrowing Greater than 1 month since last physical therapy referral, will replace referral to [facility] Mild intermittent asthma 12/21/2022 Assessment & Plan (12/24/2022 8:58 PM EDT): ?? Continue with albuterol PRN ?? Reports well controlled Healthcare maintenance 12/21/2022 Overview (04/07/2024): - Mammo: BIRADS-1 on 02/12/24 - C-scope: 12/2016 will request pathology report. Cologuard neg Jun 2023. - Pap: 12/24/22 HPV neg. Previous 01/2020, nilm. (Followed by [facility] FLOW MANAGER - Dr. Garay) - Dental: referral to [facility] Dental 09/02/23 - Optometry: Last with [facility] Eye Care, Jul 2023 - Bone density: 01/14/24 normal based on lowest T-score of 0.1 in femoral neck. Assessment & Plan (12/24/2022 8:58 PM EDT): - Optometry: Jul 2021, presbyopia, repeat 1-2 years - Mammo: BIRADS-1 in December 2021. 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 2022 Prediabetes 2022 Overview (09/20/2022): -Last A1c 6.0% in May 2022 -Encouraged to continue with lifestyle interventions Tobacco dependence syndrome 02/02/2013 Overview (04/07/2024): -Smoking 6-7 cigg/day, encouraged to cont with smoking cessation efforts -Encourage to follow up if interested in smoking cessation resources through the clinic Assessment & Plan (06/25/2024 1:20 PM EST): Actively cutting down, declines further assistance today, chest x-ray ordered Heart murmur 08/25/2012 Assessment & Plan (04/07/2024 2:04 PM EDT): [facility] Hyperlipidemia 08/25/2012 Overview (04/07/2024): -Continues with atorvastatin 20mg nightly Premature ventricular contraction 12/29/2011 Hypothyroidism 12/23/2011 Assessment & Plan (09/02/2023 7:23 PM EST): Lab Results Component Value Date TSH 1.85 05/27/2023 -September 2022: Levothyroxine was decreased from 100mcg to 88mcg -TSH 0.22 02/24/23 -February: Levothyroxine decreased from 88mcg to 75mcg daily -Continue levothyroxine 75mcg daily Assessment & Plan (05/27/2023 6:20 AM EST): Lab Results Component Value Date TSH 0.22 (L) 02/25/2023 -September 2022: Levothyroxine was decreased from 100mcg to 88mcg -TSH 0.22 02/24/23 -February: Levothyroxine decreased from 88mcg to 75mcg daily -Labs: due for repeat TSH Assessment & Plan (12/24/2022 8:58 PM EDT): Lab Results Component Value Date TSH 0.19 (L) 09/22/2022 -Levothyroxine was decreased from 100mcg to 88mcg in September 2022 following result above. Due for repeat TSH, pending. 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 Resolved Problems Problem Noted Date Diagnosed Date Resolved Date Impaired fasting glucose 03/11/201802/2023 Encounters Date Type Department Care Team Description 08/10/2024 10:45 AM EST Office Visit [facility] [address] [place] [address] Trisha Steinberg FNP Encounter for routine history and physical examination of adult (Primary Dx); Healthcare maintenance; Other specified hypothyroidism; Other hyperlipidemia; Encounter for immunization 08/10/2024 Travel 08/09/2024 Telephone [facility] [address] [place] [address] Keyona Teixeira MA Chart Prep 07/29/2024 Patient Outreach [facility] [address] [place] [address] Trisha Steinberg FNP Pre-visit Planning (SDOH screening was completed on 12/30/2023) 06/24/2024 3:30 PM EST Office Visit [address] [address] Mary Zavala NP Weight loss (Primary Dx); Tobacco dependence syndrome 06/21/[address] [phone] Heather Knott MA Chart Prep 06/10/[address] [address] Keyona Teixeira MA Results 06/10/2024 Travel 06/10/2024 Telephone [facility] [address] [place] [phone] Trisha Steinberg FNP Nurse Triage 06/08/2024 Telephone [facility] [address] [place] [phone] Sulema Banuelos MD 06/06/[address] [address] Trisha Steinberg FNP Results 06/03/2024 Orders Only [facility] [address] [place] [address] Sulema Banuelos MD 06/02/2024 9:20 AM EST Office Visit [facility] [address] [place] [phone] Sulema Banuelos MD Pain and swelling of knee, left (Primary Dx) from Last 3 Months Immunizations Name Administration Dates Next Due Hep B, adult 11/07/2008,03/16/2008,02/16/2008 Influenza injectable quadriv alent IIV4 with preservative 06/03/2017,04/12/2015 Influenza injectable quadriv alent preservative free 04/13/2023,04/07/2022,04/22/2021,04/12,04/24/2018 Influenza, IIV3, injectable 04/17/2014 Influenza, Split (incl. sandra fied surface antigen) 06/10/2013,08/25/2012 Influenza, seasonal, injecta ble, preservative free 04/06/2024 Moderna Covid-19 Vaccine 12+ 06/25/2021,10/30/19 21,10/01/2020 Pfizer Covid-19 Vaccine 12+ 04/16/2023 Pfizer Covid-19 Vaccine 12+ Bivalent 05/12/2022 Pneumococcal Conjugate PCV 20 05/27/2023 Pneumococcal Polysaccharide PPSV23 07/08/2021 TD (adult), 2 Lf tetanus tox oid, preservative free, adsorbed 09/19/2022(Deferred: Patient decision - Needs to parts picker daughter, will come for nurse visit on 09/21),10/19/2002 Tdap 08/10/2024,08/25/2012 Family History Medical History Relation Name Comments Heart murmur Mother Hypertension Mother Relation Name Status Comments Mother Social History Tobacco Use Types Packs/Day Years Used Date Smoking Tobacco: Every Day Cigarettes Smokeless Tobacco: Never Tobacco Cessation:Ready to Q uit: Not Asked; Counseling Given: Not Answered Comments:Abstaining since testing positive , affirmed this Alcohol Use Standard [...] not to disclose 2021 10:15 AM EDT Last Filed Vital Signs Vital Sign Reading Time Taken Comments Blood Pressure 110/62 08/10/2024 11:15 AM EST Pulse 62 08/10/2024 11:15 AM EST Temperature 36.4 ??C (97.5 ??F) 08/10/2024 11:[address] Respiratory Rate 17 08/10/2024 11:15 AM EST Oxygen Saturation 97% 08/10/2024 11:15 AM EST Inhaled Oxygen Concentration - - Weight 58.5 kg (129 lb) 08/10/2024 11:15 AM EST Height 154.9 cm (5' 1 ) 08/10/2024 11:15 AM EST Body Mass Index 24.37 08/10/2024 11:15 AM EST Plan of Treatment Health Maintenance Due Date Last Done Comments CT Colonography 1960 Colonoscopy 1960 Dental Oral Exam 1960 Dental Prophylaxis 1960 Dental X-Ray: Full Mouth 1960 FIT 1960 FOBT 1960 Sigmoidoscopy 1960 Zoster Vaccines (1 of 2) 2012 RSV Patients and Patients Aged 60 years or older (1 - Risk 60-74 years 1-dose series) 2022 Dental X-Ray: Bitewings 01/07/2025 01/07/2024 Mammogram 02/11/2025 02/12/2024, 06/0 01/2022, 12/23/2021, Additional history exists Alcohol/Substance Use Screening 08/10/2025 08/10/2024 COVID-19 Vaccine ( season) 2025 04/16/2023, 05/12/2022, 06/25/2021, Additional history exists Postponed from 03/20/2024 (Patient Refused) Depression Screening 08/10/2025 08/10/2024, 08/10/19 Diabetes: Hemoglobin A1C 08/10/2025 025, 12/22/2022, 05/22/2022, Additional history exists SDOH Screening 08/10/2025 08/10/2024 Tobacco Screening 08/10/2025 08/10/2024 Bone Density Scan 01/13/2026 01/14/2024 Colorectal Cancer Screening 06/24/2026 FIT DNA/Cologuard 06/24/2026 06/24/2023, 08/15/2019 Cervical Cancer Screening 12/25/2027 HPV/Cotest 12/25/2027 12/24/2022 Pap Smear 12/25/2027 12/24/2022, 01/18, 02/03/2020 Lipid Panel 08/10/2029 08/10/2024, 03/0 12/2022, 05/22/2022, Additional history exists DTaP/Tdap/Td Vaccines (3 - Td or Tdap) 08/10/2034 08/10/2024, 08/25/2012, 10/19/2002 Hepatitis B Vaccines Completed 11/07/2008, 03/16/2008, 02/16/2008 HIV Screening Completed 07/09/2021 Hepatitis C Screening Completed 07/09/2021 Pneumococcal Vaccine: Pediatrics (0 to 5 Years) and At-Risk Patients (6 to 64 Years) Completed 05/27/2023, 07/08/2021 Influenza Vaccine Completed 04/06/2024, , 04/07/2022, Additional history exists HIB Vaccines Aged Out No longer eligi ble based on patient's age to complete this topic HPV Vaccines Aged Out No longer eligi ble based on patient's age to complete this topic Hepatitis A Vaccines Discontinued IPV Vaccines Aged Out No longer eligi ble based on patient's age to complete this topic Meningococcal Vaccine Aged Out No yefri graham eligible based on patient's age to complete this topic RSV under 20 months Aged Out No longe r eligible based on patient's age to complete this topic Rotavirus Vaccines Aged Out No longer eligible based on patient's age to complete this topic Procedures Procedure Name Priority Date/Time Associated Diagnosis Comments HEMOGLOBIN A1C Routine 08/10/2024 12:19 PM EST Encounter for routine history and physical examination of adult LIPID PANEL, STANDARD Routine 08/10/2024 12:19 PM EST Encounter for routine history and physical examination of adult ALBUMIN, RANDOM URINE W/CREATININE Routine 08/10/2024 12:19 PM EST Encounter for routine history and physical examination of adult CBC WITH AUTO DIFFERENTIAL Routine 08/10/2024 12:19 PM EST Weight loss COMPREHENSIVE METABOLIC PANEL Routine 08/10/2024 12:19 PM EST Weight loss US VENOUS DUPLEX LE LT Routine 06/03/2024 2:38 PM EST BI MAMMOGRAM SCREENING TOMOSYNTHESIS BILATERAL Routine 02/12/2024 10:25 AM EDT BD DEXA AXIAL Routine 01/14/2024 10:30 AM EDT Post-menopausal BITEWING - SINGLE RADIOGRAPHIC IMAGE Routine 01/07/2024 1:00 PM EDT Periodontal disease Dental abscess Dental caries Dental calculus LAB COLOGUARD?? COLON CANCER SCREEN Routine 06/24/2023 8:12 AM EST Colon cancer screening HPV MRNA E6/E7 REFLEX TO HPV 16, 18/45 Routine 12/24/2022 11:20 AM EDT Other specified hypothyroidism PAP SMEAR Routine 12/24/2022 11:20 AM EDT Other specified hypothyroidism ZZZ HISTORICAL HEPATITIS C AB W/REFL TO HCV RNA, QN, PCR Routine 07/09/2021 8:17 AM EST HIV 1/2 ANTIGEN/ANTIBODY, FOURTH GENERATION W/RFL Routine 07/09/2021 8:17 AM EST from Last 3 Months or Most Recently Relevant to Health Maintenance Results * Albumin, Random Urine W/Creatinine (08/10/2024 12:19 PM EST) Creatinine, Urine 79.74 mg/dL [facility] Microalbumin Urine 7.0 mg/L [facility] Microalbum Creatinine Ratio Ur 8.7 <30 ug/mg cr [facility] Comment:Albumin/Creatinine R atio Reference Ranges: Normal: < 30 ug/mg creatinine Microalbuminuria: 30 - 300 ug/mg creatinineClinical Albuminuria: > 300 ug/mg creatinine Urine 08/10/2024 12:1 9 PM EST 08/10/2024 1:03 PM EST us Trisha Steinberg [facility] URINE ORDERABLES Final Res ult [facility] [address] [place] [address] [phone] * (ABNORMAL) CBC auto differential (08/10/2024 12:19 PM EST) White Blood Count 12.2(H) 4.8 - 10.8 X10*3/uL [facility] Red Blood Count 4.20 4.20 - 5.50 X10*6/uL [facility] Hemoglobin 13.7 12.0 - 16.0 g/dl [facility] Hematocrit 40.6 37.0 - 47.0 % [facility] Mean Corpuscular Volume 96.7 80.0 - 98.0 fL [facility] Mean Corpuscular Hemoglobin 32.6 27.0 - 33.0 pg [facility] Mean Corpuscular HGB Conc 33.7 31.0 - 35.0 g/dl [facility] Red Cell Distribution Width 13.4 11.0 - 16.0 % [facility] Platelet Count 270 160 - 400 X10*3/uL [facility] Mean Platelet Volume 10.1 9.4 - 12.3 fL [facility] Neutrophils Percent Auto 76.1(H) 45 - 73 % [facility] Imm Gran Pct Auto 0.2 0.0 - 0.4 % [facility] Lymphocytes Percent Auto 17.7(L) 20 - 40 % [facility] Monocytes Percent Auto 4.5 2 - 11 % [facility] Eosinophils Percent Auto 0.7 0 - 4 % [facility] Basophils Percent Auto 0.8 0 - 2 % [facility] NRBC Pct Auto 0.0 0.0 - 0.2 /100WBC [facility] Neutrophils Absolute Auto 9.3(H) 2.0 - 8.3 x10*3/uL [facility] Imm Gran Abs Auto 0.03 0.00 - 0.03 X10*3/uL [facility] Lymphocytes Absolute Auto 2.2 1.2 - 4.9 X10*3/uL [facility] Monocytes Absolute Auto 0.6 0.1 - 1.2 X10*3/uL [facility] Eosinophils Absolute Auto 0.1 0.0 - 0.4 X10*3/uL [facility] Basophils Absolute Auto 0.1 0.0 - 0.2 X10*3/uL [facility] NRBC Abs Auto 0.000 0.0 - 0.012 X10*3/uL [facility] Blood Venous blood specimen / Unknown 08/10/2024 12:19 PM EST 08/10/2024 1:19 PM EST us Mary Zavala [employer] LAB BLOOD ORDERABLES Final Resul t [facility] [address] [place], [place] [phone] * Hemoglobin A1c (08/10/2024 12:19 PM EST) Hemoglobin A1c 6.0 <6.0 % [facility] Comment:Hemoglobin A1C Refer ence Range Adults: 4.8 - 6.0 % Non diabetic: < 6.0 % Goal: < 7.0 %Additional Action Suggested: > 8.0 %Note: Hemoglobin A1c results are invalid for patients with abnormal amounts of HbF. Blood transfusions may impact the HbA1c concentration in the patient sample. Estimated Average Glucose 126 mg/dL [facility] Comment:eAG = Estimated ave rage glucose which is %A1C expressed asaverage glucose, using the formula of the [id number] Glucose study (ADAG), Diabetes Care, Vol.31,#8,Feb. 2007 Blood Venous blood specimen / Unknown 08/10/2024 12:19 PM EST 08/10/2024 1:19 PM EST us Trisha Steinberg OCE[employer] LIFEGUARD LAB BLOOD ORDERABLES Final Res ult [facility] [address] [place] [phone] * Lipid Panel, Standard (08/10/2024 12:19 PM EST) Triglycerides 66 <150 mg/dL [facility] Comment:Desirable Triglyceri de: less than 150 mg/dLBorderline High Triglyceride 150-199 mg/dLHigh Triglyceride: 200-499 mg/dLVery High Triglyceride: greater than or equal to 5OO mg/dL Cholesterol 163 <200 mg/dL [facility] Comment:Desirable Cholestero l: less than 200 mg/dLBorderline High Cholesterol: 200-239 mg/dLHigh Cholesterol: greater than 239 mg/dL LDL Cholesterol Calculated 84 <100 mg/dL [facility] Comment:Desirable LDL: less than 100 mg/dLNear Optimal/Above Optimal LDL: 110- 129 mg/dLBorderline High LDL: 130-159 mg/dLHigh LDL: 160-189 mg/dLVery High LDL: greater than or equal to 190 mg/dL HDL Cholesterol 66 >40 mg/dL [facility] Comment:Desirable HDL: great er than 40 mg/dL Note: This HDL assay may give artificially low results in patients with liver disease. Blood Venous blood specimen / Unknown 08/10/2024 12:19 PM EST 08/10/2024 1:19 PM EST us Trisha Steinberg [employer]CE[employer] LIFEGUARD LAB BLOOD ORDERABLES Final Res ult [facility] [address] [place] [address] [phone] * (ABNORMAL) Comprehensive Metabolic Panel (08/10/2024 12:19 PM EST) Sodium 139 135 - 145 mmol/L [facility] Potassium 4.6 3.3 - 5.1 mmol/L [facility] Chloride 108 96 - 108 mmol/L [facility] Carbon Dioxide 27 22 - 29 mmol/L [facility] Anion Gap 9(L) 12 - 20 [facility] Urea Nitrogen (BUN) 17(H) 9 - 16 mg/dL [facility] Creatinine, Serum 0.77 0.5 - 1.4 mg/dL [facility] Estimated Glomerular Filt Rate >60 [facility] Comment:Chronic Kidney Disea se: Estimated GFR < 60 mL/min/[id number] Kidney Disease: Estimated GFR < 15 mL/min/1.73m2 Glucose 98 60 - 115 mg/dL [facility] Calcium 10.2 8.4 - 10.2 mg/dL [facility] Bilirubin, Total 0.6 0.0 - 1.0 mg/dL [facility] Aspartate Amino Transferase 25 5 - 31 U/L [facility] Alanine Aminotransferase 30 0 - 31 U/L [facility] Total Protein 7.9 6.5 - 8.0 g/dL [facility] Albumin Level 4.4 3.5 - 5.0 g/dL [facility] Alkaline Phosphatase 82 39 - 117 U/L [facility] Blood Venous blood specimen / Unknown 08/10/2024 12:19 PM EST 08/10/2024 1:19 PM EST us Mary Zavala [employer]INE[employer] LAB BLOOD ORDERABLES Final Resul t [facility] [address] [place] [phone] * US VENOUS DUPLEX LE LT (06/03/2024 2:38 PM EST) Anatomical Region Laterality Modality Abdomen Ultrasound 06/03/2024 2:38 PM EST Narrative 06/03/2024 3:56 PM EST ? [facility] ?[address] ?[place] [address] ? Ultrasound Report ? Signed ? Patient: Bessone,Dorita ?MR#: [id number] ?? [id number] ? : 1960 ?Acct:[id number] ? Age/Sex: 63 / F ?ADM Date: 06/03/24 ? Loc: HO.US ? Attending Dr: Sulema Banuelos MD ? Ordering Physician: Sulema Banuelos MD ?? Date of Service: 06/03/24 ?? Procedure(s): US venous duplex LE LT ?? Accession Number(s): [id number] ? cc: Sulema Banuelos MD; Trisha Steinberg ? EXAMINATION: ?? US TRIPLEX LOWER EXTREMITY, LEFT ? CLINICAL INFORMATION: ?? Left lower extremity pain. Evaluate for deep vein thrombosis. ? COMPARISON: ?? None available. ? TECHNIQUE: ?? Color-flow triplex imaging with spectral analysis and compression ?? Doppler were performed on the left lower extremity. ? FINDINGS: ?? Respiratory variation, normal compression and augmented flow are noted ?? throughout the left lower extremity. The visualized common femoral ?? vein, superficial femoral vein, profunda femoral vein, popliteal vein ?? and midcalf peroneal and posterior tibial venous segments show no ?? evidence of deep venous thrombosis. ? There is no Saxena's cyst. ? US/US venous duplex LE LT ?? IMPRESSION: ?? No evidence of deep venous thrombosis involving the left lower ?? extremity. ? Electronically signed by: ??Albert Jackson MD ??06/03/2024 03:53 PM EST ?? RP ? Dictated By: ?Albert Jackson MD ? Signed By: ?<Electronically signed by Albert Jackson MD in OV> ?06/03/24 1553 ? DD/ 1438 ? TD/TT: 06/03/24 1444 ? Lacquer Dipping Machine Operator: SR ? Procedure Note Hoang Montano - 06/03/2024 [place] [address] Ultrasound Report Signed Patient: Manny Baker#: [id number] : 1960cct:[id number] Age/Sex: 63 / FADM Date: 06/03/24 Loc: .US Attending Dr: Sulema Banuelos MD Ordering Physician: Sulema Banuelos MD Date of Service: 06/03/24 Procedure(s): US venous duplex LE LT Accession Number(s): [id number] cc: Sulema Banuelos MD; Trisha Steinberg [employer] EXAMINATION: US TRIPLEX LOWER EXTREMITY, LEFT CLINICAL INFORMATION: Left lower extremity pain. Evaluate for deep vein thrombosis. COMPARISON: None available. TECHNIQUE: Color-flow triplex imaging with spectral analysis and compression Doppler were performed on the left lower extremity. FINDINGS: Respiratory variation, normal compression and augmented flow are noted throughout the left lower extremity. The visualized common femoral vein, superficial femoral vein, profunda femoral vein, popliteal vein and midcalf peroneal and posterior tibial venous segments show no evidence of deep venous thrombosis. There is no Saxena's cyst. US/US venous duplex LE LT IMPRESSION: No evidence of deep venous thrombosis involving the left lower extremity. Electronically signed by: Albert Jackson MD 06/03/2024 03:53 PM EST Dictated By: Albert Jackson MD Signed By: <Electronically signed by Albert Jackson MD in OV> 06/03/24 1553 DD/ 1438 TD/TT: 06/03/24 1444 Lacquer Dipping Machine Operator: SR Sulema Banuelos MD IMG US PROCEDURES Final Resul t * BI Mammogram Screening Tomosynthesis Bilateral (02/12/2024 10:25 AM EDT) Anatomical Region Laterality Modality Breast Bilateral Mammography 02/12/2024 10:2 5 AM EDT Narrative 02/22/2024 11:13 PM EDT ? [facility] ? [address] ?[place] [address] ? Mammography Report ? Signed ? Patient: Bessone,Dorita ?MR#: [id number] ?? [id number] ? : 1960 ?Acct:[id number] ? Age/Sex: 63 / F ?ADM Date: 02/12/24 ? Loc: HO.MAMMO ? Attending Dr: Trisha Steinberg [employer]ARD ? Ordering Physician: Gavin Garay MD ?Results: 1Negativ ?? e ? Date of Service: 02/12/24 ?Follow Up: 1 Year From Orig ?? inal Mammogram ? Procedure(s): MM tomosynthesis screening BI ?? Accession Number(s): [id number] ? cc: Trisha Steinberg; Gavin Garay MD ? EXAMINATION: ?? MM SCREENING DIGITAL BREAST TOMOSYNTHESIS, BILATERAL ? CLINICAL INFORMATION: ? Screening. Asymptomatic. ? COMPARISON: ?? Mammography: This study is compared with prior exams dating back to ?? 2019. ? TECHNIQUE: ?? Digital breast tomosynthesis is performed in both the craniocaudal and ?? mediolateral oblique views along with computer-aided detection (CAD). ?? Synthesized 2D images are generated from the tomosynthesis. ? FINDINGS: ?? There are scattered areas of fibroglandular density (ACR BI-RADS breast ?? composition Category b). ? There are no significant masses, abnormal calcifications, or other ?? abnormalities. ? MM/MM tomosynthesis screening BI ?? IMPRESSION: ?? No mammographic evidence of malignancy. ? ASSESSMENT: ? BI-RADS BI-RADS 1 - Negative ? RECOMMENDATION: ?? Routine annual mammography screening. ? 1 year F/U ? This examination should not preclude the clinical evaluation of a ?? suspicious palpable abnormality. ? This patient's information was entered into a reminder system with a ?? target due date for their next mammogram. ? Dictated By: ?Amy Luke MD ? Signed By: ?<Electronically signed by Amy Luke MD in OV> ? 02/22/24 2310 ? DD/ 1025 ? TD/TT: ? Lacquer Dipping Machine Operator: ? Procedure Note Charmaine, Image - 02/22/2024 [facility] [address] [place], [place] [address] Mammography Report Signed Patient: Manny Baker#: [id number] : 2Acct:[id number] Age/Sex: 63 / FADM Date: 02/12/24 Loc: HO.MAMMO Attending Dr: Trisha BURDICK Ordering Physician: Gavin Garayesults: 1Negativ e Date of Service: 02/12/24Follow Up: 1 Year From Orig inal Mammogram Procedure(s): MM tomosynthesis screening BI Accession Number(s): [id number] cc: Trisha Steinberg; Gavin Garay MD EXAMINATION: MM SCREENING DIGITAL BREAST TOMOSYNTHESIS, BILATERAL CLINICAL INFORMATION: Screening. Asymptomatic. COMPARISON: Mammography: This study is compared with prior exams dating back to 2019. TECHNIQUE: Digital breast tomosynthesis is performed in both the craniocaudal and mediolateral oblique views along with computer-aided detection (CAD). Synthesized 2D images are generated from the tomosynthesis. FINDINGS: There are scattered areas of fibroglandular density (ACR BI-RADS breast composition Category b). There are no significant masses, abnormal calcifications, or other abnormalities. MM/MM tomosynthesis screening BI IMPRESSION: No mammographic evidence of malignancy. ASSESSMENT: BI-RADS BI-RADS 1 - Negative RECOMMENDATION: Routine annual mammography screening. 1 year F/U This examination should not preclude the clinical evaluation of a suspicious palpable abnormality. This patient's information was entered into a reminder system with a target due date for their next mammogram. Dictated By: Amy Luke MD Signed By: <Electronically signed by Amy Luke MD in OV> 02/22/24 2310 DD/ 1025 TD/TT: Lacquer Dipping Machine Operator: [facility] External Provider IMG BI PROCEDURES Final Result * BD DEXA Axial (01/14/2024 10:30 AM EDT) Anatomical Region Laterality Modality Body Radiographic Tawanna ging 01/14/2024 10:3 0 AM EDT Narrative 01/14/2024 5:57 PM EDT ? [facility] [place] ? [address] ?[place] [address] ? Mammography Report ? Signed ? Patient: Bessone,Dorita ?MR#: [id number] ?? [id number] ? : 1960 ?Acct:[id number] ? Age/Sex: 63 / F ?ADM Date: 06/27/24 ? Loc: HO.MAMMO ? Attending : Trisha Steinberg OCEAN LIFEGUARD ? Ordering Physician: Trisha Steinberg OCEAN LIFEGUARD ?Results: ? Date of Service: 01/14/24 ?Follow Up: ? Procedure(s): XR DEXA axial skeleton ?? Accession Number(s): [id number] ? cc: Trisha Steinberg ? EXAMINATION: ?? BONE DENSITOMETRY ? CLINICAL INDICATION: ?? Postmenopausal. ? COMPARISON: ?? This is the patient's baseline examination. ? TECHNIQUE: Using a Purch DXA System (software version: ?? 13.1) manufactured by [employer], dual-energy x-ray absorptiometry ?? was performed of the lumbar spine and left hip. The images are of good ?? technical quality. Summary results are attached. ? FINDINGS: ?? LEFT FEMUR, NECK: ?? BMD 1.053 g/cm2, Z-score 1.4, T-score 0.1, normal. ? LEFT FEMUR, TOTAL: ?? BMD 1.149 g/cm2, Z-score 2.1, T-score 1.1, normal. ? AP SPINE L1-L4: ?? BMD 1.241 g/cm2, Z-score 1.8, T-score 0.5, normal. ? IDENTIFIED RISK FACTORS: ?? Menopause. ? HISTORY OF FRACTURE: ?? None listed. ? MEDICATIONS: ?? None listed. ? MM/XR DEXA axial skeleton ?? IMPRESSION: ?? 1. DIAGNOSIS: Normal bone density based on the lowest T-score value of ?? 0.1 in the femoral neck applying World Health Organization criteria. ? 2. 10-YEAR FRACTURE RISK PREDICTION, FRAX: According to the guidelines, ?? FRAX calculation should only be performed on patients in the osteopenia ?? bone density category. Therefore, FRAX was not performed on this ?? patient. ?? 3. Treatment Recommendations: NOF guidelines recommend consideration ?? for treatment in postmenopausal women and men age 50 and older ?? presenting with the following: ?? -A hip or vertebral (clinical or morphometric) fracture. ?? -T-score less than or equal to -2.5 at the femoral neck or spine after ?? appropriate evaluation to exclude secondary causes. ?? -Low bone mass at the hip or spine and a 10-year fracture probability ?? by FRAX of greater than or equal to 3% for hip fracture or greater than ?? or equal to 20% for major osteoporotic fracture based on the [place] adapted ?? WHO algorithm. ?? 4. Other Recommendations: All treatment decisions require clinical ?? judgment and consideration of individual patient factors, including ?? patient preferences, comorbidities, previous drug use, risk factors not ?? captured in the FRAX model (e.g. frailty, falls, vitamin D deficiency, ?? increased bone turnover, interval significant decline in bone density) ?? and possible under or overestimation of fracture risk by FRAX. ? FUTURE SCAN RECOMMENDATION: ?? People with diagnosed cases of osteoporosis or at high risk for ?? fracture should have regular bone mineral density tests. For patients ?? eligible for Medicare, routine testing is allowed once every 2 years. ?? The testing frequency can be increased to one year for patients who ?? have rapidly progressing disease, those who are receiving or ?? discontinuing medical therapy to restore bone mass, or have additional ?? risk factors. ? Dictated By: ?Suleman Cope MD ? Signed By: ?<Electronically signed by Suleman Cope MD in OV> ?01/14/24 1753 ? DD/ 1030 ? TD/TT: ? Lacquer Dipping Machine Operator: SK ? Procedure Note Hoang Montano - 01/14/2024 [facility] [address] [place], [place] [address] Mammography Report Signed Patient: Manny Baker#: [id number] : 2Acct:[id number] Age/Sex: 63 / FADM Date: 01/14/24 Loc: HO.MAMMO Attending Dr: Trisha Steinberg OCEAN LIFEGUARD Ordering Physician: Trisha Steinberg FNPResults: Date of Service: 01/14/24Follow Up: Procedure(s): XR DEXA axial skeleton Accession Number(s): [id number] cc: Trisha Steinberg OCEAN LIFEGUARD EXAMINATION: BONE DENSITOMETRY CLINICAL INDICATION: Postmenopausal. COMPARISON: This is the patient's baseline examination. TECHNIQUE: Using a Purch DXA System (software version: 13.1) manufactured by [employer], dual-energy x-ray absorptiometry was performed of the lumbar spine and left hip. The images are of good technical quality. Summary results are attached. FINDINGS: LEFT FEMUR, NECK: BMD 1.053 g/cm2, Z-score 1.4, T-score 0.1, normal. LEFT FEMUR, TOTAL: BMD 1.149 g/cm2, Z-score 2.1, T-score 1.1, normal. AP SPINE L1-L4: BMD 1.241 g/cm2, Z-score 1.8, T-score 0.5, normal. IDENTIFIED RISK FACTORS: Menopause. HISTORY OF FRACTURE: None listed. MEDICATIONS: None listed. MM/XR DEXA axial skeleton IMPRESSION: 1. DIAGNOSIS: Normal bone density based on the lowest T-score value of 0.1 in the femoral neck applying World Health Organization criteria. 2. 10-YEAR FRACTURE RISK PREDICTION, FRAX: According to the guidelines, FRAX calculation should only be performed on patients in the osteopenia bone density category. Therefore, FRAX was not performed on this patient. 3. Treatment Recommendations: NOF guidelines recommend consideration for treatment in postmenopausal women and men age 50 and older presenting with the following: -A hip or vertebral (clinical or morphometric) fracture. -T-score less than or equal to -2.5 at the femoral neck or spine after appropriate evaluation to exclude secondary causes. -Low bone mass at the hip or spine and a 10-year fracture probability by FRAX of greater than or equal to 3% for hip fracture or greater than or equal to 20% for major osteoporotic fracture based on the [place] adapted WHO algorithm. 4. Other Recommendations: All treatment decisions require clinical judgment and consideration of individual patient factors, including patient preferences, comorbidities, previous drug use, risk factors not captured in the FRAX model (e.g. frailty, falls, vitamin D deficiency, increased bone turnover, interval significant decline in bone density) and possible under or overestimation of fracture risk by FRAX. FUTURE SCAN RECOMMENDATION: People with diagnosed cases of osteoporosis or at high risk for fracture should have regular bone mineral density tests. For patients eligible for Medicare, routine testing is allowed once every 2 years. The testing frequency can be increased to one year for patients who have rapidly progressing disease, those who are receiving or discontinuing medical therapy to restore bone mass, or have additional risk factors. Dictated By: Suleman Cope MD Signed By: <Electronically signed by Suleman Cope MD in OV> 01/14/24 1753 DD/ 1030 TD/TT: Lacquer Dipping Machine Operator: RAHEEM Trisha Steinberg OCEAN LIFEGUARD IMG DXA PROCEDURES Final Resul t * Cologuard?? colon cancer screening (06/24/2023 8:12 AM EST) Cologuard Result Negative Negative 07/01/20 1:25 PM EST [facility] (CLIA #:[id number]) Comment: NEGATIVE TEST RESULT. A negative Cologuard result indicates a low likelihood that a colorectal cancer (CRC) or advanced adenoma (adenomatous polyps with more advanced pre-malignant features) ??is present. The chance that a person with a negative Cologuard test has a colorectal cancer is less than 1 in 1500 (negative predictive value >99.9%) or has an ??advanced adenoma is less than ??5.3% (negative predictive value 94.7%). These data are based on a prospective cross-sectional study of 10,000 individuals at average risk for colorectal cancer who were screened with both Cologuard and colonoscopy. (Brittny Tabor et al, N Engl J Med 2014;370(14):1286- 1297) The normal value (reference range) for this assay is negative. COLOGUARD RE-SCREENING RECOMMENDATION: Periodic colorectal cancer screening is an important part of preventive healthcare for asymptomatic individuals at average risk for colorectal cancer. ??Following a negative Cologuard result, the [place] Cancer Society and U.S. Multi-Society Task Force screening guidelines recommend a Cologuard re-screening interval of 3 years. References: [place] [employer] Guideline for Colorectal Cancer Screening: https://www.cancer.org/cancer/ekwwd-tfwfic-jkffzs/qgbvuaoah-lawcsgxzk-vxexlca/ac s-rec ommendations.html.; Oren HARRINGTON John CR, Carmelo McknightK, Colorectal Cancer Screening: Recommendations for Physicians and Patients from the U.S. Multi-Society Task Force on Colorectal Cancer Screening , Am J Gastroenterology 2017; 112:8885-7401. TEST DESCRIPTION: Composite algorithmic analysis of stool DNA-biomarkers with hemoglobin immunoassay. ?? Quantitative values of individual biomarkers are not reportable and are not associated with individual biomarker result reference ranges. Cologuard is intended for colorectal cancer screening of adults of either sex, 45 years or older, who are at average-risk for colorectal cancer (CRC). Cologuard has been approved for use by the U.S. FDA. The performance of Cologuard was established in a cross sectional study of average-risk adults aged 50-84. Cologuard performance in patients ages 45 to 49 years was estimated by sub-group analysis of near-age groups. Colonoscopies performed for a positive result may find as the most clinically significant lesion: colorectal cancer [4.0%], advanced adenoma (including sessile serrated polyps greater than or equal to 1cm diameter) [20%] or non- advanced adenoma [31%]; or no colorectal neoplasia [45%]. These estimates are derived from a prospective cross-sectional screening study of 10,000 individuals at average risk for colorectal cancer who were screened with both Cologuard and colonoscopy. (Brittny Solis al, N Engl J Med 2014;370(14):7169-5194.) Cologuard may produce a false negative or false positive result (no colorectal cancer or precancerous polyp present at colonoscopy follow up). A negative Cologuard test result does not guarantee the absence of CRC or advanced adenoma (pre-cancer). The current Cologuard screening interval is every 3 years. ([place] [employer] and U.S. Multi-Society Task Force). Cologuard performance data in a 10,000 patient pivotal study using colonoscopy as the reference method can be accessed at the following location: www.[employer].Vertascale/results. Additional description of the Cologuard test process, warnings and precautions can be found at www.HWrd.com. Stool specimen (specimen) 06/24/2023 8:12 AM EST 06/25/2023 7:01 PM EST Trisha Steinberg OCEAN LIFEGUARD LAB MOLECULAR DIAGNOSTICS NAKUL SHERIFF Final Result [facility] (CLIA #:[id number]) [address] [place] [address], [place] [phone] * HPV mRNA E6/E7 w/Reflex to HPV Genotypes 16, 18/45 (12/24/2022 11:20 AM EDT) HPV nRNA E6/E7 Not Detected Not Detected [facility] Comment:Methodology: Transcr iption-Mediated AmplificationThis assay detects E6/E7 viral messenger RNA (mRNA) from 14high-risk HPV types (16,18,31,33,35,39,45,51,52,56,58,59,66,68).Cervical sources are required for HPV testing.If a vaginal source from a patient who has had atotal hysterectomy with removal of cervix wassubmitted, please contact the testing laboratoryfor alternative testing options.For additional information, please refer tohttp://education.[employer]/faq/IMT240f7(This link if provided for information/educational purposes only.)THIS TEST WAS PERFORMED AT:[email or web address] [place] [phone] RUTH MD HPV mRNA E6/E7 [facility] HPV 16 RNA [facility] HPV 18/45 RNA [facility] 12/24/2022 11:2 0 AM EDT 12/25/2022 8:30 AM EDT [facility] External Provider LAB CYT OLOGY ORDERABLES Final Result Performing Organization Address [facility]/ZIP Co de Phone Number [facility] [address] [place] [address] [phone] * Pap Smear (12/24/2022 11:20 AM EDT) 12/24/2022 11:2 0 AM EDT 12/25/2022 8:30 AM EDT Narrative [facility] - 01/09/2023 2:03 PM EDT ----- ------- Name: SamuelBradyDorita ? Age/Sex: 62/F ? : 1960 Unit#: [id number] ?? Attend Dr: Gavin Garay MD ?Re12/24/22 ?Status: DEP REF ? Location: HO.LNP ?Disch: ? ----- ------- SPEC : [id number] ? RECD: 12/25/22 ? STATUS: ??SOUT ? REQ NUM: [id number] ? LIBBY: 12/24/22-1119 ? SUBM DR: Gavin Garay MD ? ENTERED: ??12/25/22 ?SP TYPE: Pap Smr ?OTHR : Trisha Steinberg ? ORDERED: ??Pap Smear ? Interpretation ?? Satisfactory for evaluation. ?? No endocervical cells seen. ?? Negative for intraepithelial lesion or malignancy. ?HPV mRNA E6/E7: ?NOT DETECTED ? This assay detects E6/E7 viral messenger RNA (mRNA) from 14 high-risk HPV types (16, 18, ?? 31, 33, 35, 39, 45, 51, 52, 56, 58, 59, 66, 68) ? HPV testing performed by [facility], [place], [place]. ??See reference laboratory ?? portion of the EMR for entire report. ?Clinical Information LMP: No menses Previous PAP test: Unknown date/findings ? Material Received ?? ThinPrep-Cervical Copies To: ?? Trisha Steinberg ?? [address] [facility] ?? [place] [address] ?? [phone] ?? Gavin Garay MD ?? [address] [place] [address] [address] ?? [place] [address] ?? [phone] ----- ------- Signed (signature on file) LORA Pennington ([facility]) 01/09/23 1403 ? ----- ------- ? END OF REPORT ? [facility] External Provider LAB CYT OLOGY ORDERABLES Final Result Performing Organization Address City/[facility]/ZIP Co de Phone Number [facility] [address] [place] [address] [phone] * HEPATITIS C AB W/REFL TO HCV RNA, QN, PCR (07/09/2021 8:17 AM EST) [facility] HEPATITIS C ANTIBODY NON-REACT MY NON-REACT MY [facility] INDEX 0.02 <1.00 [facility] Comment: ?? HCV antibody was non-reactive. There is no laboratory ?? evidence of HCV infection. ?? In most cases, no further action is required. However, if recent HCV exposure is suspected, a test for HCV RNA (test code 11169) is suggested. ?? For additional information please refer to http://education.[employer]/faq/LZC83h3 (This link is being provided for informational/ educational purposes only.) ?? 07/09/2021 8:17 AM EST Yris Reddy OCEAN LIFEGUARD HISTORICAL/NON ORDERABLE LABS Final Result [facility] [address] * HIV 1/2 ANTIGEN/ANTIBODY,FOURTH GENERATION W/RFL (07/09/2021 8:17 AM EST) HIV-1/2 ANTIGEN AND ANTIBODIES, 4TH GENERATION W/ REFLEX NON-REACT MY NON-REACT MY [facility] Comment: HIV-1 antigen and HIV-1/HIV-2 antibodies were not detected. There is no laboratory evidence of HIV infection. ?? PLEASE NOTE: This information has been disclosed to you from records whose confidentiality may be protected by state law. ??If your state requires such protection, then the state law prohibits you from making any further disclosure of the information without the specific written consent of the person to whom it pertains, or as otherwise permitted by law. A general authorization for the release of medical or other information is NOT sufficient for this purpose. ? For additional information please refer to http://education.[employer]/faq/KLE249 (This link is being provided for informational/ educational purposes only.) ? The performance of this assay has not been clinically validated in patients less than 2 years old. ?? 07/09/2021 8:17 AM EST us Yris Reddy OCE[facility] LIFEGUARD LAB BLOOD ORDERABLES Final Res ult [facility] [address] from Last 3 Months or Most Recently Relevant to Health Maintenance Insurance [facility] ST[facility] ADULT Care Teams It Technician Relationship Specialty Start Date End Date Trisha Steinberg FNP [address] [place] [address] PCP - General Family Medicine 03/17/22
--- OUTSIDE RECORDS SUMMARY | 2024-08-10 14:12 | XMS_ITS | Encounter Summary ---
Author Organization [employer] Address [address] [facility] [address] [place] [address] Care Team Providers Care Chemical Project Engineer Name Role Phone Maryan Trisha BURDICK Primary Care Provider Reason for Visit * Reason Onset Date Comments Results 10/07/2023 Encounter Details Date Type Department Care Team ([facility] st Contact Info) Description 10/07/2023 Telephone [facility] [address] [place] [address] Trisha Steinberg FNP [address] [place], [place] [phone] Results Social History Tobacco Use Types Packs/Day Years Used Date Smoking Tobacco: Every Day Cigarettes Smokeless Tobacco: Never Comments:Abstaining since te sting positive , affirmed this Alcohol Use Standard Drinks/Week Comments Never 0 (1 standard drink = 0.6 oz pur e alcohol) Depression Answer Date Recorded Patient Health Questionnaire-9 Score 0 12/30/2023 Patient Health Questionnaire-9 Score 0 12/30/2023 Last PHQ-9: Questionnaire Data Not on file 0 12/30/2023 Housing Stability Answer Date Recorded What is [...] from getting things needed for daily living? Yes, it has kept me from non-medical meetings, work, or getting things that I need 12/30/2023 Utilities Answer Date Recorded In the past 12 months, has t he electric, gas, oil or water company threatened to shut off services in your home? No 12/30/2023 Depression Answer Date Recorded Patient Health Questionnaire-2 Score 0 12/30/2023 Internet Access Answer Date Recorded Internet Access Q1 No 07/29/2024 Internet Access Q2 I do not want or need it 07/20 Comments Unknown Sex and Gender Information Value Date Recorded Sex Assigned at Female 05/19/2022 10:15 AM EDT Legal Sex Female 10:15 AM EDT Gender Identity Female 09/20/2022 2:48 PM EST Sexual Orientation Choose not to disclose 2021 10:15 AM EDT documented as of this encounter Miscellaneous Notes * Telephone Encounter - Su Lawrence RN - 10/07/2023 5:24 PM EDT TC returned to patient regarding request for US results. Read the impression to the patient, emphasizing similarity to previous imaging done in 02/07. Patient has questions regarding calcifications, wants to know if diet could help reduce these. Advised patient to bring all f/u questions to televisit with PCP on 10/12/23. Patient also reporting LLQ abdominal discomfort whenever lifting heavy objects. States that it is a very, very mild pain. Advised to speak more with PCP during next visit. Patient agreed and expressed understanding of all. Routing to PCP so she is aware. TC from pt requesting call back regarding Results. Type of results: Us Date when done: last week Facility: [facility] Please contact at [phone] * Telephone Encounter - Bay Sahni - 10/07/2023 10:38 AM EDT TC from pt requesting call back regarding Results. Type of results: Us Date when done: last week Facility: [facility] Please contact at [phone] documented in this encounter Plan of Treatment Not on file documented as of this encounter Visit Diagnoses Not on filedocumented in this encounter Additional Health Concerns Assessment Noted Time PHQ-9 Depression Total Score: 0 12/23/19 9:43 AM EDT documented as of this encounter Care Teams Chemical Project Engineer Relationship Specialty Start Date End Date Trisha Steinberg FNP [address] [place] [phone] PCP - General Family Medicine 03/17/22 documented as of this encounter
--- OUTSIDE RECORDS SUMMARY | 2024-08-10 14:12 | XMS_ITS | Encounter Summary ---
Author Organization [employer] Address [address] [place] [address] Care Team Providers Care County Extension Agent Name Role Phone Trisha Steinberg GENNARO Primary Care Provider [phone] Encounter Details Date Type Department Care Team ([facility] st Contact Info) Description 10/01/2023 Telephone [facility] [address] [place] [address] Mindyjose luisTrisha FNP [address] [place], [place] [phone] Social History Tobacco Use Types Packs/Day Years Used Date Smoking Tobacco: Every Day Cigarettes Smokeless Tobacco: Never Comments:Abstaining since te sting positive , affirmed this Alcohol Use Standard Drinks/Week Comments Never 0 (1 standard drink = 0.6 oz pur e alcohol) Depression Answer Date Recorded Patient Health Questionnaire-9 Score 0 12/22/2022 Housing Stability Answer Date Recorded What is your housing situation today? I have bambi simon 05/24/[address] you li ve. Do you have problems with any of the following? None of the above 05/24/2023 Food Insecurity Answer Date Recorded Within the past 12 months, y ou worried that your food would run out before you got money to buy more: Never True 05/24/2023 Within the past 12 months,th e food you bought just didn't last and you didn't have enough money to get more: Never True 11/2022 Transportation Answer Date Recorded In the past 12 months, has l ack of transportation kept you from medical appts, meetings, work or from getting things needed for daily living? No 05/24/2023 Utilities Answer Date Recorded In the past 12 months, has t he electric, gas, oil or water [employer] threatened to shut off services in your home? No 05/24/2023 Depression Answer Date Recorded Patient Health Questionnaire-2 Score 0 12/22/2022 Comments Unknown Sex and Gender Information Value [...] Time PHQ-9 Depression Total Score: 0 12/23/19 23 9:43 AM EDT documented as of this encounter Care Teams County Extension Agent Relationship Specialty Start Date End Date Trisha Steinberg FNP [address] [place] [address] PCP - General Family Medicine 03/17/22 documented as of this encounter
--- OUTSIDE RECORDS SUMMARY | 2024-08-10 14:12 | XMS_ITS | Encounter Summary ---
Author Organization [employer] Address [address] [facility] 7t [place] [address] Care Team Providers Care Information Receptionist Name Role Phone Trisha Steinberg DIRECTOR OF ACQUISITIONS Primary Care Provider [phone] Reason for Visit * Reason Onset Date Comments Chart Prep 08/09/2024 Encounter Details Date Type Department Care Team (Late st Contact Info) Description 08/09/2024 Telephone [facility] [address] [place], [place] [phone] Keyona Teixeira [place] Chart Prep Social History Tobacco Use Types Packs/Day Years [...] encounter Miscellaneous Notes * Telephone Encounter - Keyona Whitten [place] - 08/09/2024 9:15 AM EST Chart Prep Labs: not done Images: not done Vaccines due: yes Referrals: complete Screenings: n/a Overdue care gaps: A1C, Glucose, Sbirt documented in this encounter Plan of Treatment Not on file documented as of this encounter Visit Diagnoses Not on filedocumented in this encounter Additional Health Concerns Assessment Noted Time PHQ-9 Depression Total Score: 0 12/30/19 24 10:11 AM EDT documented as of this encounter Care Teams Information Receptionist Relationship Specialty Start Date End Date Trisha Steinberg FNP [address] [place] [phone] PCP - General Family Medicine 03/17/22 documented as of this encounter
--- OUTSIDE RECORDS SUMMARY | 2024-08-10 14:12 | XMS_ITS | Encounter Summary ---
Author Organization [employer] Address [address] [facility] 7[address] [place] [address] Care Team Providers Care Incident Response Lead Name Role Phone Trisha Steinberg GENNARO Primary Care Provider [phone] Reason for Visit * Reason Comments Pre-visit Planning SDOH screening was c ompleted on 12/30/2023 Encounter Details Date Type Department Care Team ([facility] Contact Info) Description 07/29/2024 Patient Outreach [facility] [address] [place], [place] [phone] Trisha Steinberg FNP [address] [place] [address] Pre-visit Planning (SDOH screening was completed on 12/30/2023) Social History Tobacco Use Types Packs/Day Years [...] AM EDT documented as of this encounter Progress Notes * [place] Lei - 07/29/2024 12:21 PM EST TIBURCIO Guadalupe placed successful outbound call to patient for pre-visit planning. Patient name and confirmed. Patient confirms appt date and time, and has transportation arrangements. Biggest concern for appointment at this time is no concerns but if she was to have a concern will discuss it withPCP in person. Patient advised to bring to appointment a photo id and insurance card. Appropriate screenings completed in anticipation of appointment. documented in this encounter Plan of Treatment Not on file documented as of this encounter Visit Diagnoses Not on filedocumented in this encounter Additional Health Concerns Assessment Noted Time PHQ-9 Depression Total Score: 0 12/30/19 24 10:11 AM EDT documented as of this encounter Care Teams Incident Response Lead Relationship Specialty Start Date End Date Trisha Steinberg FNP [address] [place] [phone] PCP - General Family Medicine 8/29/22 documented as of this encounter
--- OUTSIDE RECORDS SUMMARY | 2024-08-10 14:12 | XMS_ITS | Encounter Summary ---
Author Organization [employer] Address [address] [facility] [address] [place] [address] Care Team Providers Care Kitchen Food Assembler Name Role Phone Maryan Trisha BURDICK Primary Care Provider [phone] Reason for Visit * Reason Comments Annual Exam Encounter Details Date Type Department Care Team ([facility] st Contact Info) Description 08/10/2024 10:45 AM EST Office Visit [facility] [address] [place] [address] Trisha Steinberg FNP [address] [place], [place] [phone] Encounter for routine history and physical examination of adult (Primary Dx); Healthcare maintenance; Other specified hypothyroidism; Other hyperlipidemia; Encounter for immunization Social History Tobacco Use Types Packs/Day Years [...] AM EDT documented as of this encounter Last Filed Vital Signs Vital Sign Reading [...] Mass Index 24.37 08/10/2024 11:15 AM EST documented in this encounter Plan of Treatment Scheduled Orders Name Type Priority Associated Diagnoses Orde r Schedule TSH with Reflex to Free T4 Lab Routine Encounter for routine history and physical examination of adult Expected: 08/10/2024 (Approximate), Expires: 08/10/2025 Comprehensive Metabolic Panel Lab Routine Encounter for routine history and physical examination of adult Expected: 08/10/2024 (Approximate), Expires: 08/10/2025 CBC auto differential Lab Routine Encounter for routine history and physical examination of adult Expected: 08/10/2024, Expires: 08/10/2025 Chlamydia/N. Gonorrhoeae RNA, TMA, Urogenitial Microbiology Routine Encounter for routine history and physical examination of adult Expected: 08/10/2024, Expires: 08/10/2025 Hepatitis C Viral RNA, Quantitative, Real-Time PCR Lab Routine Encounter for routine history and physical examination of adult Expected: 08/10/2024 (Approximate), Expires: 08/10/2025 RPR (Monitor) with Reflex to??Titer Lab Routine Encounter for routine history and physical examination of adult Expected: 08/10/2024 (Approximate), Expires: 08/10/2025 HIV-1/2 Antigen and Antibodies, Fourth Generation, with Reflexes Lab Routine Encounter for routine history and physical examination of adult Expected: 08/10/2024 (Approximate), Expires: 08/10/2025 Hepatitis B Core Antibody, Total Lab Routine Encounter for routine history and physical examination of adult Expected: 08/10/2024 (Approximate), Expires: 08/10/2025 Hepatitis B Surface Antibody, Qualitative Lab Routine Encounter for routine history and physical examination of adult Expected: 08/10/2024 (Approximate), Expires: 08/10/2025 Hepatitis B surface antigen, EIA Lab Routine Encounter for routine history and physical examination of adult Expected: 08/10/2024 (Approximate), Expires: 08/10/2025 documented as of this encounter Procedures Procedure Name Priority Date/Time Associated Diagnosis Comments ALBUMIN, RANDOM URINE W/CREATININE Routine 08/10/2024 12:19 PM EST Encounter for routine history and physical examination of adult HEMOGLOBIN A1C Routine 08/10/2024 12:19 PM EST Encounter for routine history and physical examination of adult LIPID PANEL, STANDARD Routine 08/10/2024 12:19 PM EST Encounter for routine history and physical examination of adult documented in this encounter Results * Hemoglobin A1c (08/10/2024 12:19 PM EST) Hemoglobin A1c 6.0 <6.0 % [facility] Comment:Hemoglobin A1C Refer ence Range Adults: 4.8 - 6.0 % Non diabetic: < 6.0 % Goal: < 7.0 %Additional Action Suggested: > 8.0 %Note: Hemoglobin A1c results are invalid for patients with abnormal amounts of HbF. Blood transfusions may impact the HbA1c concentration in the patient sample. Estimated Average Glucose 126 mg/dL [facility] Comment:eAG = Estimated ave rage glucose which is %A1C expressed asaverage glucose, using the formula of the M9A-JvygreiOdsajfl Glucose study (ADAG), Diabetes Care, Vol.31,#8,2007 Blood Venous blood specimen / Unknown 08/10/2024 12:19 PM EST 08/10/2024 1:19 PM EST us Trisha Steinberg MOTOR REBUILDER LAB BLOOD ORDERABLES Final Res ult [facility] [address] [place] [phone] * Lipid Panel, Standard (08/10/2024 12:19 PM EST) Triglycerides 66 <150 mg/dL [facility] Comment:Desirable Triglyceri de: less than 150 mg/dLBorderline High Triglyceride 150-199 mg/dLHigh Triglyceride: 200-499 mg/dLVery High Triglyceride: greater than or equal to 5OO mg/dL Cholesterol 163 <200 mg/dL [facility] Comment:Desirable Cholestero l: less than 200 mg/dLBorderline High Cholesterol: 200-239 mg/dLHigh Cholesterol: greater than 239 mg/dL LDL Cholesterol Calculated 84 <100 mg/dL [facility] Comment:Desirable LDL: less than 100 mg/dLNear Optimal/Above Optimal LDL: 110- 129 mg/dLBorderline High LDL: 130-159 mg/dLHigh LDL: 160-189 mg/dLVery High LDL: greater than or equal to 190 mg/dL HDL Cholesterol 66 >40 mg/dL [facility] Comment:Desirable HDL: great er than 40 mg/dL Note: This HDL assay may give artificially low results in patients with liver disease. Blood Venous blood specimen / Unknown 08/10/2024 12:19 PM EST 08/10/2024 1:19 PM EST us Trisha Steinberg MOTOR REBUILDER LAB BLOOD ORDERABLES Final Res ult Performing Organization Address [facility] Co de Phone Number [facility] [address] [place] [phone] * Albumin, Random Urine W/Creatinine (08/10/2024 12:19 PM EST) Creatinine, Urine 79.74 mg/dL [facility] Microalbumin Urine 7.0 mg/L [facility] Microalbum Creatinine Ratio Ur 8.7 <30 ug/mg cr [facility] Comment:Albumin/Creatinine R atio Reference Ranges: Normal: < 30 ug/mg creatinine Microalbuminuria: 30 - 300 ug/mg creatinineClinical Albuminuria: > 300 ug/mg creatinine Urine 08/10/2024 12:1 9 PM EST 08/10/2024 1:03 PM EST us Trisha NIELSENP LAB URINE ORDERABLES Final Res ult Performing Organization Address [facility] Co de Phone Number [facility] [address] [place] [phone] documented in this encounter Visit Diagnoses Diagnosis Encounter for routine history and physical examination of adult- Primary Healthcare maintenance Other specified hypothyroidism Other hyperlipidemia Encounter for immunization documented in this encounter Additional Health Concerns Assessment Noted Time PHQ-9 Depression Total Score: 0 08/10/19 25 11:20 AM EST documented as of this encounter Care Teams Kitchen Food Assembler Relationship Specialty Start Date End Date Trisha Steinberg FNP [address] [place] [phone] PCP - General Family Medicine 03/17/22 documented as of this encounter
--- OUTSIDE RECORDS SUMMARY | 2024-08-10 14:12 | XMS_ITS | Encounter Summary ---
Author Organization [employer] [facility] Address [address] [facility] 7[address] [place] [address] Care Team Providers Care Fire Adjuster Name Role Phone Maryan Trisha BURDICK Primary Care Provider [phone] Encounter Details Date Type Department Care Team (Latest Contact Info) Description 06/01/2019 Abstract [facility] CONVERSIONS Dental, Provider, DDS Social History Tobacco Use Types Packs/Day Years Used Date Smoking Tobacco: Never Assessed Comments Unknown Sex and Gender Information Value [...] Diagnoses Not on filedocumented in this encounter Care Teams Fire Adjuster Relationship Specialty Start Date End Date Trisha Steinberg FNP [address] [place] [phone] PCP - General Family Medicine 03/17/22 documented as of this encounter
[2024-08-10 14:18] LABS: TSH reflex Free T4 7.25 uIU/mL (0.32-4.0)
[2024-08-10 14:49] LABS: CT PCR NOT DETECTED (Not Detect.); NG PCR NOT DETECTED (Not Detect.)
[2024-08-10 14:52] LABS: Free T4 (Free Thyroxine) 1.06 ng/dL (0.71-1.85)
[2024-08-11 08:18] LABS: HBS Num1 1.66 mIU/mL (0-7.99); HBc Num1 0.08 S/CO (0.00-0.79); HBsAGNum1 0.43 S/CO (0.00-0.99); HIV AB/AG Nonreactive (Nonreactive); HIV Num 1 0.06 S/CO (0.00-0.99); Hepatitis B Core Antibody Nonreactive (Nonreactive); Hepatitis B Surface Antigen Negative (Negative); ~Hepatitis B Surface Antibody NONREACTIVE (Nonreactive)
[2024-08-12 15:58] LABS: HCV Log PCR <1.18 NOT DETECTED Log IU/mL (NOT DETECTED); HepC Viral Load <15 NOT DETECTED IU/mL (NOT DETECTED)
[2024-08-16 10:39] LABS: RPR Rapid Plasma Reagin NON-REACTIVE (NON-REACTIVE)
== END 2024-08-10 12:16 | disposition home or self-care (01) ==
LOC: HO.HHCL 12:15
PROVIDERS: Nurse Practitioner Family; Visit Provider Registered Nurse
DX: Z00.00 Encounter for general adult medical examination without abnormal findings (principal); R63.4 Abnormal weight loss
CPT/HCPCS: 36415; 80053; 80061; 82043; 82570; 83036; 83970; 84439; 84443; 85025; 86592; 86704; 86706; 87340; 87389; 87491; 87522; 87591

== ENCOUNTER 2024-12-21 10:47 | Outpatient (REF) | payer MEDICAID, SELFPAY ==
--- OUTSIDE RECORDS SUMMARY | 2024-12-21 11:36 | XMS_ITS | Encounter Summary ---
Author Organization [employer] Address [address] [facility] [address] [place] [address] Care Team Providers Care Warehouse Traffic Supervisor Name Role Phone Trisha Steinberg Primary Care Provider [phone] Harshad Murrell MD Unavailable [phone] Encounter Details Date Type Department Care Team ([facility] st Contact Info) Description 10/01/2023 Telephone [facility] [address] [place] [address] Trisha Steinberg FNP [address] [place] [address] Social History Tobacco Use Types Packs/Day Years [...] documented as of this encounter Care Teams Warehouse Traffic Supervisor Relationship Specialty Start Date End Date Trisha Steinberg FNP [address] [place] [address] PCP - General Family Medicine 03/17/22 Harshad Murrell MD [address] [place] [phone] Cardiology 08/10/24 documented as of this encounter
[2024-12-21 13:20] LABS: MANUAL DIFF FLAG NO
[2024-12-21 13:26] LABS: Basophils Absolute Auto 0.1 X10*3/uL (0.0-0.2); Basophils Percent Auto 0.6 % (0-2); Eosinophils Absolute Auto 0.1 X10*3/uL (0.0-0.4); Eosinophils Percent Auto 0.6 % (0-4); Hematocrit 41.1 % (37.0-47.0); Hemoglobin 13.5 g/dl (12.0-16.0); Imm Gran Abs Auto 0.04 X10*3/uL (0.00-0.03); Imm Gran Pct Auto 0.3 % (0.0-0.4); Lymphocytes Absolute Auto 2.1 X10*3/uL (1.2-4.9); Lymphocytes Percent Auto 15.1 % (20-40); Mean Corpuscular HGB Conc 32.8 g/dl (31.0-35.0); Mean Corpuscular Hemoglobin 31.9 pg (27.0-33.0); Mean Corpuscular Volume 97.2 fL (80.0-98.0); Mean Platelet Volume 10.1 fL (9.4-12.3); Monocytes Absolute Auto 0.6 X10*3/uL (0.1-1.2); Monocytes Percent Auto 4.1 % (2-11); Neutrophils Absolute Auto 11.1 x10*3/uL (2.0-8.3); Neutrophils Percent Auto 79.3 % (45-73); Platelet Count 291 X10*3/uL (160-400); Red Blood Count 4.23 X10*6/uL (4.20-5.50); White Blood Count 13.9 X10*3/uL (4.8-10.8)
[2024-12-21 14:15] LABS: Alanine Aminotransferase 19 U/L (0-31); Albumin Level 4.3 g/dL (3.5-5.0); Alkaline Phosphatase 72 U/L (39-117); Anion Gap 8 (12-20); Aspartate Amino Transferase 21 U/L (5-31); Bilirubin Total 0.4 mg/dL (0.0-1.0); Blood Urea Nitrogen 15 mg/dL (9-16); Calcium 9.8 mg/dL (8.4-10.2); Carbon Dioxide 27 mmol/L (22-29); Chloride 108 mmol/L (96-108); Estimated Glomerular Filt Rate > 60; Glucose Random 105 mg/dL (60-115); Potassium 4.1 mmol/L (3.3-5.1); Sodium 139 mmol/L (135-145); Total Protein 7.1 g/dL (6.5-8.0)
[2024-12-21 14:32] LABS: TSH reflex Free T4 0.87 uIU/mL (0.32-4.0)
== END 2024-12-21 10:48 | disposition home or self-care (01) ==
LOC: HO.HHCL 10:47
PROVIDERS: Visit Provider Registered Nurse
DX: Z00.00 Encounter for general adult medical examination without abnormal findings (principal); E03.8 Other specified hypothyroidism
CPT/HCPCS: 36415; 80053; 84443; 85025

== ENCOUNTER 2025-03-08 11:05 | Outpatient (REF) | payer MEDICAID, SELFPAY ==
--- NOTE | ~2025-03-08 | MM_ITS ---
EXAMINATION: MM SCREENING DIGITAL BREAST TOMOSYNTHESIS, BILATERAL CLINICAL INFORMATION: Screening. Asymptomatic. COMPARISON: Mammography: Comparison is made with available priors TECHNIQUE: Digital breast mammography with tomosynthesis is performed in both the craniocaudal and mediolateral oblique views along with computer-aided detection (CAD). FINDINGS: The breasts are heterogeneously dense, which may obscure small masses (ACR BI-RADS breast composition Category c). There are no significant masses, abnormal calcifications, or other abnormalities. MM/MM tomosynthesis screening BI IMPRESSION: No mammographic evidence of malignancy. ASSESSMENT: BI-RADS BI-RADS 1 - Negative RECOMMENDATION: Routine annual mammography screening. 1 year F/U This examination should not preclude the clinical evaluation of a suspicious palpable abnormality. This patient's information was entered into a reminder system with a target due date for their next mammogram. Electronically signed by: Alayna Hickey DO 03/09/2025 04:55 PM EDT
--- OUTSIDE RECORDS SUMMARY | 2025-03-08 12:29 | XMS_ITS | Encounter Summary ---
Author Organization [employer] Address [address] [facility] [address] [place] [address] Care Team Providers Care Kettle Skimmer Name Role Phone Trisha Steinberg Primary Care Provider [phone] Harshad Murrell MD Unavailable [phone] Encounter Details Date Type Department Care Team ([facility] st Contact Info) Description 10/01/2023 Telephone [facility] [address] [place] [address] Trisha Steinberg FNP [address] [place] [address] Social History Tobacco Use Types Packs/Day Years [...] as of this encounter Plan of Treatment Upcoming Encounters Date Type Department Care Team (Late st Contact Info) Description 04/19/2025 11:30 AM EDT Office Visit [facility] [address] [place] [address] Trisha Steinberg FNP [address] [place] [address] documented as of this encounter Visit Diagnoses Not on filedocumented in this encounter Additional Health Concerns Assessment Noted Time PHQ-9 Depression Total Score: 0 12/23/19 23 9:43 AM EDT documented as of this encounter Care Teams Kettle Skimmer Relationship Specialty Start Date End Date Trisha Steinberg FNP [address] [place] [address] PCP - General Family Medicine 03/17/22 Harshad Murrell MD [address] [place] [address] Cardiology 08/10/24 documented as of this encounter
== END 2025-03-08 11:06 | disposition home or self-care (01) ==
LOC: HO.MAMMO 11:05
PROVIDERS: PCP Registered Nurse; Visit Provider Registered Nurse
DX: Z12.31 Encounter for screening mammogram for malignant neoplasm of breast (principal)
CPT/HCPCS: 77063; 77067

== ENCOUNTER → 2025-03-08 11:45 | Outpatient (BNV) | payer MEDICAID, SELFPAY | PROVIDERS: PCP Registered Nurse; Visit Provider Internal Medicine | DX: Z12.31 Encounter for screening mammogram for malignant neoplasm of breast (principal) | CPT/HCPCS: 77063; 77067 ==